=== PATIENT | male | born 1945 | race Caucasian/White ===

== ENCOUNTER 2017-11-23 20:35 | Inpatient (IN) ==
--- NOTE | 2017-11-23 21:06 | PDOC ---
Gen Adult / Medical Screen HPI - General Chief Complaint: General Medical Stated Complaint: ACHES FROM FEET TO HEAD X 2 DAYS Date Seen by Provider: 11/23/17 Time Seen by Provider: 20:51 Source: POSITIVE: Patient Exam Limitations: POSITIVE: No limitations Nurse's Notes Reviewed & Considered: Yes - History of Present Illness Initial Comments: This is a well-developed, well-nourished, 72-year-old male, complaining of hurting all over. Patient has 2 day history of increasing pain from his head to the bottom of his feet. He takes 5 oxycodone today, taking his Lasix approximately 7 PM tonight. He presented here to the emergency room complaining of hurting all over and was found to have an oxygen saturation of 76 % on room air. He states that he received a prescription for home oxygen on Saturday but [facility] has not filled it at this time. He states he gets occasional headaches but presently has no headache. He denies any present chest pain, he does have shortness of breath, denies any nausea vomiting or diarrhea, no fever chills or sweats, no rashes, no hematuria or dysuria, he does have myalgias. Timing: REPORTS: Unknown Duration: >24 hours Similar Symptoms Previously: Yes Recent Care Received: REPORTS: Denies Any Prior Injuries Related to Current Complaint?: No - Patient Home Medications Home Medications: Home Medications Furosemide [Lasix Tab] 40 mg PO BID 05/26/13 Oxycodone HCl/Acetaminophen [Oxycodone-Acetaminophen 10-325] 1 tab PO Q6HR PRN 05/26/13 Spironolactone [Aldactone] 1 tab PO DAILY 05/26/13 Arformoterol Neb Soln [Brovana Neb Soln] 15 mcg IH BID 09/10/13 Desvenlafaxine Succinate [Pristiq ER] 50 mg PO DAILY 09/10/13 Lactulose 10 gm PO QID 09/10/13 Phytonadione (Vit K1) [Vitamin K] 5 gm MC DAILY 09/10/13 Potassium Chloride [Klor-Con Tab] 10 meq PO TID 09/10/13 - Patient Allergies Allergies/Adverse Reactions: Allergies 3 Allergy/AdvReac Type Severity Reaction Status Date / Time cyclobenzaprine HCl Allergy DYSPHORIA Verified 11/23/17 21:02 [From Flexeril] methocarbamol [From Robaxin] Allergy Anaphylaxis Verified 11/23/17 21:02 Past Medical History - heen HEENT History: Cataracts Cardiovascular History: Denies History Respiratory History: COPD, Shortness of Breath, Home Oxygen Use Gastrointestinal History: Diverticulitis Additional Gastrointestinal History: CIRRHOSIS Genitourinary History: Denies History Endocrine History: Denies History Musculoskeletal History: Back Pain Neurological History: Denies History Blood Disorders: Denies History Additional Blood Disorders History: CALL RECEIVED FROM PATIENTS PCP DR SANDERS IN [place]. PT INR HIGH. TO BE TREATED WITH VITAMIN K. DR TITUS OFFICE CALLED AND THEY WERE MADE AWARE OF SITUATION BY DR LOPEZ OFFICE ALSO. DR SALCEDO IN AGREEMENT TO DO PT/INR ON SATURDAY AND IF RESULTS BACK TO NORMAL WILL DO SURGERY BUT IF NOT, SX TO BE CANCELLED. MR CA CALLED TO INFORM HIM OF THIS, AND HE SAID THAT DUE TO INSURANCE AND COST, HE HADNT GOTTEN MEDS YET, AND THAT HIS CASE WAS GOING TO BE APPEALED. I GAVE HIM THE PHONE # TO [facility] AND ASKED HIM TO CALL TOMORROW TO LET THEM KNOW IF HE WAS GOING TO START MEDS OR NOT. [facility]PS WILL THEN CALL DR BLEVINS OFFICE IF HE ISNT GOING TO BE ABLE TO TAKE MED, AT WHICH TIME HIS SURGERY WOULD BE CANCELLED Psychiatric History: Denies History History of Sexually Transmitted Diseases: No Cancer History: Denies History History of MDRO: No History of Other Communicable Diseases: No Alcohol Use: Occasionally In the Past 12 Months, Have Used or Abuse Any Substance: Cocaine, Marijuana, Other (please comment) Previous Surgical History: Yes Type / Date of Surgery: BACK SURGERY/ COLONOSCOPY Anesthesia Reactions: No Malignant Hyperthermia: No Significant Family History: No pertinent family hx ROS - Limitations ROS Limitations: No Limitations Constitution: REPORTS: Denies Symptoms Cardiovascular: REPORTS: Denies Cardiac Symptoms Respiratory: REPORTS: Shortness Of Breath Neurological: REPORTS: Headache Gastrointestinal: REPORTS: Denies GI Symptoms Endocrine: REPORTS: Fatigue Musculoskeletal: REPORTS: Muscle Aches, Pedal Edema Genitourinary: REPORTS: Denies Symptoms Eyes: REPORTS: Denies Symptoms ENT: REPORTS: Denies Symptoms Skin: REPORTS: Denies Skin Symptoms Lympathic: REPORTS: Denies Lympathic Symptoms Immunologic: POSITIVE: Denies Symptoms Psychiatric: POSITIVE: Denies Psych Symptoms Gen Adult/Medical Screen Exam - General Appearance General Appearance: POSITIVE: Alert, Cooperative, No Acute Distress, No Evidence of Trauma - HEENT HEENT: POSITIVE: Head Inspection Nml, Eyes Inspection Nml, Ears Inspection Nml, Nose Inspection Nml, Oral/Dental Inspect. Nml, Pharynx Inspect. Nml, PERRL, EOMI - Pupils Pupil Size: 5 mm: Bilateral - Neck Neck: POSITIVE: Normal Inspection, Thyroid Normal - Respiratory Respiratory: POSITIVE: No Respiratory Distress, Breath Sounds Normal, Chest Non- Tender - Cardiovascular Cardiovascular: POSITIVE: Regular Rate & Rhythm, No Murmur, No Gallop, PMI Normal Peripheral Pulses: Radial (R): 4+ - Abdomen Abdomen: Soft: (All Quadrants), Normal Bowel Sounds: (All Quadrants), No Splenomegaly: (All Quadrants), No Guarding: (All Quadrants), No Rebound: (All Quadrants), No Palpable Pulse: (All Quadrants), No [place] Mass: (All Quadrants), No Distention: (All Quadrants), No Rigidity: (All Quadrants), Tenderness Noted: (All Quadrants), Hepatomegaly: (All Quadrants) - Back Back: POSITIVE: Normal Inspection - Neurological / Psychological Mental Status: POSITIVE: Mood Normal, Affect Normal Orientation: POSITIVE: Oriented x 3 - Skin Skin: POSITIVE: Normal Color, Warm, Dry, No Rash - Extremities Extremity: Non-Tender: (All Extremities), Normal ROM: (All Extremities), Normal Inspection: (All Extremities), Pelvis Stable: (All Extremities) Procedures - Laceration/Wound Repair Did patient have a laceration repair: No Gen Adlt/Medical Scrn Progress - Results Reviewed by me Xrays/CTs/US Reviewed by me: Yes Discussed with Radiologist: Yes Lab Results Reviewed by Me: Yes CBC and BMP: 11/23/17 21:25 11/23/17 21:25 Lab Results:: Laboratory Results 3 11/23/17 11/23/17 11/23/17 21:25 21:25 21:25 WBC 7.82 RBC 5.11 Hgb 13.8 L Hct 41.4 L MCV 81.0 MCH 27.0 MCHC 33.3 RDW Std Deviation 49.0 RDW Coeff of Radha 16.8 H Plt Count 233 MPV 11.5 Immature Gran % (Auto) 0.1 Neut % (Auto) 66.7 Lymph % (Auto) 16.0 [place] % (Auto) 13.8 Eos % (Auto) 2.6 Baso % (Auto) 0.8 Immature Gran # (Auto) 0.01 Neut # (Auto) 5.22 Lymph # (Auto) 1.25 [place] # (Auto) 1.08 H Eos # (Auto) 0.20 Baso # (Auto) 0.06 WBC Morphology Comment Normal morphology Plt Morphology Comment Normal morphology RBC Morph Comment Normal morphology PT 12.0 H INR 1.16 D-Dimer 4.55 H VBG pH VBG pCO2 VBG HCO3 VBG Base Excess Sodium 129 L Potassium 3.5 L Chloride 74 L Carbon Dioxide 41 H Anion Gap 14 BUN 28 H Creatinine 1.2 BUN/Creatinine Ratio 23.33 H Glucose 114 H Calculated Osmolality 274.0 Lactic Acid Calcium 8.9 Magnesium 2.3 Total Bilirubin 2.8 H GGT 30 AST 70 H ALT 28 Alkaline Phosphatase 129 H Ammonia CK-MB (CK-2) Troponin I Handheld C-Reactive Protein 1.6 H NT-Pro-B Natriuret Pep 217 H Total Protein 7.7 Albumin 3.7 Globulin 4.0 Albumin/Globulin Ratio 0.90 L Ur Collection Type Urine Color Urine Clarity Urine pH Ur Specific [place] Urine Protein Urine Glucose (UA) Urine Ketones Urine Occult Blood Urine Nitrate Urine Bilirubin Urine Urobilinogen Ur Leukocyte Esterase Ur Culture Indicated? 3 11/23/17 11/23/17 11/23/17 21:25 21:25 21:25 WBC RBC Hgb Hct MCV MCH MCHC RDW Std Deviation RDW Coeff of Radha Plt Count MPV Immature Gran % (Auto) Neut % (Auto) Lymph % (Auto) [place] % (Auto) Eos % (Auto) Baso % (Auto) Immature Gran # (Auto) Neut # (Auto) Lymph # (Auto) [place] # (Auto) Eos # (Auto) Baso # (Auto) WBC Morphology Comment Plt Morphology Comment RBC Morph Comment PT INR D-Dimer VBG pH VBG pCO2 VBG HCO3 VBG Base Excess Sodium Potassium Chloride Carbon Dioxide Anion Gap BUN Creatinine BUN/Creatinine Ratio Glucose Calculated Osmolality Lactic Acid Calcium Magnesium Total Bilirubin GGT AST ALT Alkaline Phosphatase Ammonia 29 CK-MB (CK-2) 2.55 Troponin I Handheld 0.000 C-Reactive Protein NT-Pro-B Natriuret Pep Total Protein Albumin Globulin Albumin/Globulin Ratio Ur Collection Type Urine Color Urine Clarity Urine pH Ur Specific [place] Urine Protein Urine Glucose (UA) Urine Ketones Urine Occult Blood Urine Nitrate Urine Bilirubin Urine Urobilinogen Ur Leukocyte Esterase Ur Culture Indicated? 3 11/23/17 11/23/17 11/23/17 21:30 22:32 23:45 WBC RBC Hgb Hct MCV MCH MCHC RDW Std Deviation RDW Coeff of Radha Plt Count MPV Immature Gran % (Auto) Neut % (Auto) Lymph % (Auto) [place] % (Auto) Eos % (Auto) Baso % (Auto) Immature Gran # (Auto) Neut # (Auto) Lymph # (Auto) [place] # (Auto) Eos # (Auto) Baso # (Auto) WBC Morphology Comment Plt Morphology Comment RBC Morph Comment PT INR D-Dimer VBG pH 7.58 H VBG pCO2 64 H VBG HCO3 59 H VBG Base Excess > 30 H Sodium Potassium Chloride Carbon Dioxide Anion Gap BUN Creatinine BUN/Creatinine Ratio Glucose Calculated Osmolality Lactic Acid 2.9 H Calcium Magnesium Total Bilirubin GGT AST ALT Alkaline Phosphatase Ammonia CK-MB (CK-2) Troponin I Handheld C-Reactive Protein NT-Pro-B Natriuret Pep Total Protein Albumin Globulin Albumin/Globulin Ratio Ur Collection Type Clean catch urine Urine Color Yellow Urine Clarity Clear Urine pH 7.5 Ur Specific [place] 1.010 Urine Protein Negative Urine Glucose (UA) Negative Urine Ketones Negative Urine Occult Blood Negative Urine Nitrate Negative Urine Bilirubin Negative Urine Urobilinogen 4.0 Ur Leukocyte Esterase Negative Ur Culture Indicated? Culture not set EKG Interpreted/Reviewed By Me:: Yes (sinus arrhythmia with no ST elevation. P waves are present) EKG Interpretation:: POSITIVE: Abnormal EKG - Patient's Progress Pain Medication Addressed: POSITIVE: No Re-Examine Time: 23:06 Status: POSITIVE: Improved MDM / ED Course: Patient was evaluated, an IV started, blood drawn and sent to the lab for studies, CT evaluation of chest and abdomen were obtained. Findings: CBC shows an anemia with hemoglobin of 13.8 and hematocrit of 41.4. CMP reveals sodium of 129, potassium of 3.5, chloride of 74, CO2 of 41, BUN of 28, creatinine 1.2, glucose 114, total bilirubin of 2.8, AST of 70, alkaline phosphatase of 129. Gamma GT is 30. Ammonia is 29. Her x-rays show an INR of 1.16. D-dimer is 4.55. Blood gases show pH is 7.58 with a PCO2 of 64 and a bicarbonate of 59, base excess is greater than 30. Lactic acid is elevated at 2.9. Magnesium is 2.3. Cardiac enzymes show CK-MB of 2.55 and a troponin of 0.000. CRP is 1.6. BNP is 217. Urinalysis is negative. EKG, as interpreted by me, shows a sinus arrhythmia with no ST elevations. CT scan of his chest shows no PE present. CT scan of the abdomen shows no acute intra-abdominal or intrapelvic abnormalities. Assessment: #1 hypoxia. #2 hyponatremia. #3 hypokalemia. #4 cirrhosis of the liver. Plan: IV antibiotics are provided here in the emergency room which includes azithromycin and Rocephin. Patient being admitted by the hospitalist. - Consult Consult (If Yes, Name of Consulting MD & Time Called): Yes (Dr. Dr. Yarbrough) Consulting MD will see pt:: POSITIVE: [facility] [place] Admit Counseled: POSITIVE: Patient, RE: Lab Results, RE: Radiology Results, RE: DX, RE : Need for F/U Patient Care Time - Estimated PCT Patient Care Time (In Minutes): 60 Vital Signs - Recent Vital Signs Vital Signs: Vital Signs (Last 8 hours) Temp Pulse Resp BP Pulse Ox 11/23/17 20:35 97.5 F 105 H 18 97/53 82 - VS Reviewed Vital Signs Reviewed: Yes Discharge Clinical Impression: Hypoxia, Hyponatremia, Hypokalemia Discharge Disposition: Admit to Inpatient Condition: Stable Date Decision to Admit to Inpatient: 11/23/17 Time Decision to Admit to Inpatient: 23:07
[2017-11-23] MEDS ORDERED: Sodium Chloride 0.9% 1,000 ML PRIMARY IV ONE (21:13)
[2017-11-23] MEDS ORDERED: ONDANSETRON 4 MG/2 ML VIAL IVP ONE (21:13)
--- NOTE | 2017-11-23 21:28 | EKG ---
[address] [address] Measurements Intervals [place] Rate: 66 P: [place]: 0 QRS: 26 QRSD: 117 T: 51 QT: 530 QTc: 543 Interpretive Statements SINUS RHYTHM WITH FIRST DEGREE AV BLOCK MODERATE INTRAVENTRICULAR CONDUCTION DELAY PROLONGED QT INTERVAL No previous ECG available for comparison Electronically Signed On 11-25-17 16:51:04 MDT by Dejuan Coppola [id number]
[2017-11-23 21:43] LABS: BASOPHILS # (AUTO) 0.06 10*3/UL; BASOPHILS % (AUTO) 0.8 % (0-1); EOSINOPHILS % (AUTO) 2.6 % (0-8); Hematocrit [HCT] 41.4 % (42.0-52.0); Hemoglobin [HGB] 13.8 g/dL (14.0-18.0); LYMPHOCYTES # (AUTO) 1.25 10*3/uL; MEAN CORPUSCULAR HGB CONC 33.3 g/dL (33-37); MEAN PLATELET VOLUME 11.5 FL (7.4-12.2); MONOCYTES # (AUTO) 1.08 10*3/UL (0.3-0.8); MONOCYTES % (AUTO) 13.8 % (5-15); NEUTROPHILS # (AUTO) 5.22 10*3/UL; NEUTROPHILS % (AUTO) 66.7 % (50-80); RED BLOOD COUNT 5.11 10^6/uL (4.70-6.10)
[2017-11-23 21:49] LABS: BLOOD UREA NITROGEN 28 mg/dL (7-22); BUN/CREATININE RATIO 23.33 (6-20); GAMMA GLUTAMYL TRANSPEPTIDASE 30 IU/L (8-78); SERUM ALBUMIN 3.7 g/dL (3.5-4.8)
[2017-11-23 22:03] LABS: PLATELET MORPHOLOGY COMMENT NORMAL MORPHOLOGY (NORM); RBC MORPHOLOGY COMMENT NORMAL MORPHOLOGY (NORM); WBC MORPHOLOGY COMMENT NORMAL MORPHOLOGY (NORM)
[2017-11-23 22:40] LABS: VENOUS PCO2 64 mmHg (45-55)
[2017-11-23 22:41] LABS: VENOUS BASE EXCESS > 30 MMOL/L (-2-2)
[2017-11-23 22:44] LABS: VENOUS PH 7.58 (7.32-7.42)
[2017-11-23] MEDS ORDERED: cefTRIAXone Inj 2 GM in Sodium Chloride 0.9% 100 ML IV ONE (23:03)
--- NOTE | 2017-11-23 23:11 | DI ---
EXAM: CT Abdomen and Pelvis With Intravenous Contrast CLINICAL HISTORY: Abdominal pain and cirrhosis TECHNIQUE: Axial computed tomography images of the abdomen and pelvis with intravenous contrast. COMPARISON: CT abdomen and pelvis 04/16/2011 FINDINGS: Lung bases: Patchy consolidation within the right lower lung likely representing atelectasis versus an promontory or infectious process. ABDOMEN: Liver: Cirrhotic liver. Gallbladder and bile ducts: Gallstones. Pancreas: Unremarkable. Spleen: Unremarkable. Adrenals: Unremarkable. Kidneys and ureters: Nonobstructing calculi within both kidneys. Cyst within the right kidney. Stomach and bowel: Noninflamed colonic diverticulosis. PELVIS: Appendix: Appendix is unremarkable. Bladder: Unremarkable. Reproductive: Unremarkable as visualized. ABDOMEN and PELVIS: Intraperitoneal space: Unremarkable. Bones/joints: Total left hip arthroplasty. No acute fracture. No dislocation. Soft tissues: Unremarkable. 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 Vascular calcifications. Vascular calcifications. No abdominal aortic aneurysm. Lymph nodes: Unremarkable. IMPRESSION: 1. Patchy consolidation within the right lower lung likely representing atelectasis versus an promontory or infectious process. 2. Cirrhotic liver. 3. Non-inflamed colonic diverticulosis.
--- NOTE | 2017-11-23 23:19 | DI ---
EXAM: CT Angiography Chest With Intravenous Contrast CLINICAL HISTORY: Hypoxia TECHNIQUE: Axial computed tomographic angiography images of the chest with intravenous contrast using pulmonary embolism protocol. MIP reconstructed images were created and reviewed. COMPARISON: No relevant prior studies available. FINDINGS: Pulmonary arteries: No evidence of pulmonary embolus. Aorta: No acute findings. No thoracic aortic aneurysm. Lungs: Centrilobular emphysema. Dependent atelectasis and or scarring. No mass. Pleural space: Unremarkable. No significant effusion. No pneumothorax. Heart: Unremarkable. No cardiomegaly. No significant pericardial effusion. No evidence of RV dysfunction. Bones/joints: No acute fracture. No dislocation. Soft tissues: Unremarkable. Lymph nodes: Unremarkable. No enlarged lymph nodes. Liver: Cirrhotic liver. Gallbladder and bile ducts: Gallstones. IMPRESSION: 1. No evidence of pulmonary embolus. 2. Centrilobular emphysema. 3. Gallstones. No CT evidence of acute cholecystitis. 4. Cirrhotic liver.
[2017-11-24] LABS: BILIRUBIN,URINE NEGATIVE (NEG); CLARITY,URINE CLEAR (CLEAR); COLOR,URINE YELLOW (Y); GLUCOSE, URINE (UA) NEGATIVE (NEG); OCCULT BLOOD,URINE NEGATIVE (NEG); PH,URINE 7.5 (5.0-8.5); PROTEIN,URINE NEGATIVE (NEG)
[2017-11-24 00:04] LABS: URINE SAMPLE TYPE CLEAN CATCH URINE
--- NOTE | 2017-11-24 00:29 | PDOC ---
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 He states that this has really been happening over the last day and a half to 2 days. He notes that he was started on oxygen earlier this last week and he took his prescription and the [employer], but has not had oxygen delivered to the home yet. He notes that his hypoxia is been as low as 70% at home. He denies any cough, fever, or chills. In the emergency room, he was given oxygen, and CT scan of the chest and abdomen and pelvis was done. He did not have any evidence of pulmonary emboli but had what appears to be a right lower lobe early infiltrate or consolidation. I was asked at that time to admit the patient. Given his cirrhosis and laboratory findings he does have what appears to be a class for pneumonia based on pneumonia severity index. He's not had that happen before. He notes to me that is been on antibiotics for some leg swelling and his nurse practitioner and his pain clinic program on an antibiotic that he does not recall the name of. He states he was recently placed on Lasix and spironolactone by his primary care physician for some increased swelling in his lower extremities and that that edema has significantly reduced since he's been on these pills. There were really no other exacerbating factors as the patient was not sure what was making him hurt, but he states that oxygen really does help him feel better tonight. He does admit to using vapors. Past Medical History Medical History: 1. 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 2. Chronic back pain. 3. Tobacco abuse. 4. 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 Surgical History: 1. Hip replacement, left hip Pertinent Family History: States his father committed suicide. Mother of heart complications at age 87. Past Social History: Smokes, vapes, , has 2 children described as healthy. Retired and lives here in [place], [place]. His primary physician is Dr. Lagos in [place], [place]. Tobacco Use: Current Every Day Smoker In the Past 12 Months, Have Used or Abuse Any of the Following Substance: Cocaine, Marijuana, Opiate Pain Medication, Other (please comment) (He denied any IV drug use) Alcohol Use: None Medication / Allergies Home Medications: Home Medications 3 Medication Instructions Recorded Confirmed Type Furosemide [Lasix Tab] 40 mg PO BID 05/26/13 11/23/17 History Oxycodone HCl/Acetaminophen 1 tab PO Q6HR PRN 05/26/13 11/23/17 History [Oxycodone-Acetaminophen 10-325] Spironolactone [Aldactone] 1 tab PO DAILY 05/26/13 11/23/17 History Arformoterol Neb Soln [Brovana Neb 15 mcg IH BID 09/10/13 11/23/17 History Soln] Desvenlafaxine Succinate [Pristiq 50 mg PO DAILY 09/10/13 11/23/17 History ER] Lactulose 10 gm PO QID 09/10/13 11/23/17 History Phytonadione (Vit K1) [Vitamin K] 5 gm MC DAILY 09/10/13 11/23/17 History Potassium Chloride [Klor-Con Tab] 10 meq PO TID 09/10/13 11/23/17 History Allergies/Adverse Reactions: Allergies 3 Allergy/AdvReac Type Severity Reaction Status Date / Time cyclobenzaprine HCl Allergy DYSPHORIA Verified 11/23/17 21:02 [From Flexeril] methocarbamol [From Robaxin] Allergy Anaphylaxis Verified 11/23/17 21:02 Review of Systems - Review of Systems All Systems: Reviewed & No Additional Complaints Except as Stated (I did a 12 point review systems and it was negative other than that discussed below and in the history present illness.) - Constitutional Constitutional: REPORTS: Diffuse Arthralgias, Other (Reports edema that is better on Lasix and spironolactone.) - Cardiovascular Cardiovascular: REPORTS: Negative System Review - Gastrointestinal Gastrointestinal / Abdominal: REPORTS: Constipation (Occasional but not currently) - Musculoskeletal Musculoskeletal: REPORTS: Back Pain (Chronic) Exam - Vitals Vital Signs: Vital Signs Temperature 97.5 F Temperature Source Temporal Artery Scan Pulse Rate [Pulse Oximeter] 105 Respiratory Rate 18 Blood Pressure [Left Arm] 97/53 Pulse Ox 82 Oxygen Delivery Method Room Air Height 5 ft 10 in Weight 220 lb - General General Appearance: No Acute Distress, Cooperative - Head Head Exam: Normal Inspection, Normocephalic, Atraumatic - Eye Eye Exam: POSITIVE: No Scleral Icterus - ENT ENT Exam: POSITIVE: Mucous Membranes Dry - Neck Neck Exam: Normal Inspection, No Tenderness, No Lymphadenopathy, No Thyromegaly , JVP is not Raised - Respiratory Respiratory Exam: POSITIVE: Clear to Auscultation - Bilaterally, Breathing Non Labored, Normal to Percussion and Palpation - Cardiovascular Cardiovascular Exam: POSITIVE: No Murmur, No Clicks, No Gallops, No Rubs, Tachycardia, No JVD - GI/Abdominal GI/Abdominal Exam: POSITIVE: Normal Bowel Sounds, Non Tender, Non Distended, Soft - Rectal Rectal Exam: POSITIVE: Deferred - External Exam: POSITIVE: Deferred Exam: POSITIVE: Deferred - Extremities Extremities Exam: POSITIVE: No Cyanosis Present, Clubbing Present, +1 Edema - Back Back Exam: POSITIVE: No CVA Tenderness - Neurological Neurological Exam: POSITIVE: Alert, Oriented x 3, No Facial Droop, Speech Intact / Clear, Moves All Extremities Equally - Psychiatric Psychiatric Exam: POSITIVE: Normal Affect, Normal Mood - Integumentary Integumentary Exam: POSITIVE: Dry, Intact Additional Integumentary Exam Details: There is no evidence of erythema in the lower extremity. I think the redness that he had was probably related to edema. - Central Line Examination Central Line Present on Admission: No Results - Labs CBC and BMP: 11/23/17 21:25 11/23/17 21:25 Additional Lab Results: Laboratory Results 11/23/17 11/23/17 11/23/17 Range/Units 21:25 21:25 21:25 WBC 7.82 (4.8-10.8) 10^3/uL RBC 5.11 (4.70-6.10) 10^6/uL Hgb 13.8 L (14.0-18.0) g/dL Hct 41.4 L (42.0-52.0) % MCV 81.0 (80-90) FL MCH 27.0 (27-31) PG MCHC 33.3 (33-37) g/dL RDW Std Deviation 49.0 (39-50) fL RDW Coeff of Radha 16.8 H (11.5-14.5) % Plt Count 233 (140-350) 10*3/uL MPV 11.5 (7.4-12.2) FL Immature Gran % (Auto) 0.1 (0-5) % Neut % (Auto) 66.7 (50-80) % Lymph % (Auto) 16.0 (10-50) % [place] % (Auto) 13.8 (5-15) % Eos % (Auto) 2.6 (0-8) % Baso % (Auto) 0.8 (0-1) % Immature Gran # (Auto) 0.01 10*3/UL Neut # (Auto) 5.22 10*3/UL Lymph # (Auto) 1.25 10*3/uL [place] # (Auto) 1.08 H (0.3-0.8) 10*3/UL Eos # (Auto) 0.20 10*3/UL Baso # (Auto) 0.06 10*3/UL WBC Morphology Comment Normal morphology (NORM) Plt Morphology Comment Normal morphology (NORM) RBC Morph Comment Normal morphology (NORM) PT 12.0 H (9.7-11.4) secs INR 1.16 (0.00-5.90) N/A D-Dimer 4.55 H (0.00-0.59) mg/L VBG pH (7.32-7.42) VBG pCO2 (45-55) mmHg VBG HCO3 (22-26) mmol/L VBG Base Excess (-2-2) MMOL/L Sodium 129 L (135-145) meq/L Potassium 3.5 L (3.8-5.2) meq/L Chloride 74 L (98-112) meq/L Carbon Dioxide 41 H (23-33) meq/L Anion Gap 14 (5-20) BUN 28 H (7-22) mg/dL Creatinine 1.2 (0.70-1.50) mg/dL BUN/Creatinine Ratio 23.33 H (6-20) Glucose 114 H (78-110) mg/dL Calculated Osmolality 274.0 (267-292) mOsm/kg Lactic Acid (0.70-2.10) MMOL/L Calcium 8.9 (8.7-10.7) mg/dL Magnesium 2.3 (1.6-2.4) mg/dL Total Bilirubin 2.8 H (0.3-1.2) mg/dL GGT 30 (8-78) IU/L AST 70 H (21-57) IU/L ALT 28 (21-72) IU/L Alkaline Phosphatase 129 H (38-126) IU/L Ammonia (9.0-33.0) UMOL/L CK-MB (CK-2) (0.00-5.00) NG/ML Troponin I Handheld (< 0.040) ng/mL C-Reactive Protein 1.6 H (0.0-0.9) mg/dL NT-Pro-B Natriuret Pep 217 H (0-125) PG/ML Total Protein 7.7 (6.1-8.0) g/dL Albumin 3.7 (3.5-4.8) g/dL Globulin 4.0 (2.50-4.10) g/dL Albumin/Globulin Ratio 0.90 L (1.3-2.0) mg/g Ur Collection Type Urine Color (Y) Urine Clarity (CLEAR) Urine pH (5.0-8.5) Ur Specific [place] (1.005-1.030) Urine Protein (NEG) mg/dl Urine Glucose (UA) (NEG) mg/dL Urine Ketones (NEG) Urine Occult Blood (NEG) Urine Nitrate (NEG) Urine Bilirubin (NEG) Urine Urobilinogen (0.2) EU/dL Ur Leukocyte Esterase (NEG) Ur Culture Indicated? 11/23/17 11/23/17 11/23/17 Range/Units 21:25 21:25 21:25 WBC (4.8-10.8) 10^3/uL RBC (4.70-6.10) 10^6/uL Hgb (14.0-18.0) g/dL Hct (42.0-52.0) % MCV (80-90) FL MCH (27-31) PG MCHC (33-37) g/dL RDW Std Deviation (39-50) fL RDW Coeff of Radha (11.5-14.5) % Plt Count (140-350) 10*3/uL MPV (7.4-12.2) FL Immature Gran % (Auto) (0-5) % Neut % (Auto) (50-80) % Lymph % (Auto) (10-50) % [place] % (Auto) (5-15) % Eos % (Auto) (0-8) % Baso % (Auto) (0-1) % Immature Gran # (Auto) 10*3/UL Neut # (Auto) 10*3/UL Lymph # (Auto) 10*3/uL [place] # (Auto) (0.3-0.8) 10*3/UL Eos # (Auto) 10*3/UL Baso # (Auto) 10*3/UL WBC Morphology Comment (NORM) Plt Morphology Comment (NORM) RBC Morph Comment (NORM) PT (9.7-11.4) secs INR (0.00-5.90) N/A D-Dimer (0.00-0.59) mg/L VBG pH (7.32-7.42) VBG pCO2 (45-55) mmHg VBG HCO3 (22-26) mmol/L VBG Base Excess (-2-2) MMOL/L Sodium (135-145) meq/L Potassium (3.8-5.2) meq/L Chloride (98-112) meq/L Carbon Dioxide (23-33) meq/L Anion Gap (5-20) BUN (7-22) mg/dL Creatinine (0.70-1.50) mg/dL BUN/Creatinine Ratio (6-20) Glucose (78-110) mg/dL Calculated Osmolality (267-292) mOsm/kg Lactic Acid (0.70-2.10) MMOL/L Calcium (8.7-10.7) mg/dL Magnesium (1.6-2.4) mg/dL Total Bilirubin (0.3-1.2) mg/dL GGT (8-78) IU/L AST (21-57) IU/L ALT (21-72) IU/L Alkaline Phosphatase (38-126) IU/L Ammonia 29 (9.0-33.0) UMOL/L CK-MB (CK-2) 2.55 (0.00-5.00) NG/ML Troponin I Handheld 0.000 (< 0.040) ng/mL C-Reactive Protein (0.0-0.9) mg/dL NT-Pro-B Natriuret Pep (0-125) PG/ML Total Protein (6.1-8.0) g/dL Albumin (3.5-4.8) g/dL Globulin (2.50-4.10) g/dL Albumin/Globulin Ratio (1.3-2.0) mg/g Ur Collection Type Urine Color (Y) Urine Clarity (CLEAR) Urine pH (5.0-8.5) Ur Specific [place] (1.005-1.030) Urine Protein (NEG) mg/dl Urine Glucose (UA) (NEG) mg/dL Urine Ketones (NEG) Urine Occult Blood (NEG) Urine Nitrate (NEG) Urine Bilirubin (NEG) Urine Urobilinogen (0.2) EU/dL Ur Leukocyte Esterase (NEG) Ur Culture Indicated? 11/23/17 11/23/17 11/23/17 Range/Units 21:30 22:32 23:45 WBC (4.8-10.8) 10^3/uL RBC (4.70-6.10) 10^6/uL Hgb (14.0-18.0) g/dL Hct (42.0-52.0) % MCV (80-90) FL MCH (27-31) PG MCHC (33-37) g/dL RDW Std Deviation (39-50) fL RDW Coeff of Radha (11.5-14.5) % Plt Count (140-350) 10*3/uL MPV (7.4-12.2) FL Immature Gran % (Auto) (0-5) % Neut % (Auto) (50-80) % Lymph % (Auto) (10-50) % [place] % (Auto) (5-15) % Eos % (Auto) (0-8) % Baso % (Auto) (0-1) % Immature Gran # (Auto) 10*3/UL Neut # (Auto) 10*3/UL Lymph # (Auto) 10*3/uL [place] # (Auto) (0.3-0.8) 10*3/UL Eos # (Auto) 10*3/UL Baso # (Auto) 10*3/UL WBC Morphology Comment (NORM) Plt Morphology Comment (NORM) RBC Morph Comment (NORM) PT (9.7-11.4) secs INR (0.00-5.90) N/A D-Dimer (0.00-0.59) mg/L VBG pH 7.58 H (7.32-7.42) VBG pCO2 64 H (45-55) mmHg VBG HCO3 59 H (22-26) mmol/L VBG Base Excess > 30 H (-2-2) MMOL/L Sodium (135-145) meq/L Potassium (3.8-5.2) meq/L Chloride (98-112) meq/L Carbon Dioxide (23-33) meq/L Anion Gap (5-20) BUN (7-22) mg/dL Creatinine (0.70-1.50) mg/dL BUN/Creatinine Ratio (6-20) Glucose (78-110) mg/dL Calculated Osmolality (267-292) mOsm/kg Lactic Acid 2.9 H (0.70-2.10) MMOL/L Calcium (8.7-10.7) mg/dL Magnesium (1.6-2.4) mg/dL Total Bilirubin (0.3-1.2) mg/dL GGT (8-78) IU/L AST (21-57) IU/L ALT (21-72) IU/L Alkaline Phosphatase (38-126) IU/L Ammonia (9.0-33.0) UMOL/L CK-MB (CK-2) (0.00-5.00) NG/ML Troponin I Handheld (< 0.040) ng/mL C-Reactive Protein (0.0-0.9) mg/dL NT-Pro-B Natriuret Pep (0-125) PG/ML Total Protein (6.1-8.0) g/dL Albumin (3.5-4.8) g/dL Globulin (2.50-4.10) g/dL Albumin/Globulin Ratio (1.3-2.0) mg/g Ur Collection Type Clean catch urine Urine Color Yellow (Y) Urine Clarity Clear (CLEAR) Urine pH 7.5 (5.0-8.5) Ur Specific [place] 1.010 (1.005-1.030) Urine Protein Negative (NEG) mg/dl Urine Glucose (UA) Negative (NEG) mg/dL Urine Ketones Negative (NEG) Urine Occult Blood Negative (NEG) Urine Nitrate Negative (NEG) Urine Bilirubin Negative (NEG) Urine Urobilinogen 4.0 (0.2) EU/dL Ur Leukocyte Esterase Negative (NEG) Ur Culture Indicated? Culture not set - EKG Data -: EKG Interpreted by Ms Rate: Normal EKG Shows Normal: Sinus Rhythm (Sinus arrhythmia) - EKG Data When Compared to Previous EKG(s) There Are: Previous EKG Unavailable - Imaging Status: Image Reviewed by Me (I looked at the CT scan of the chest, I also looked at the CT scan of the abdomen and pelvis. The patient has a small liver. He has what appears to be a right renal cyst. He has what appears to be developing infiltrate in the right lower lobe.) Assessment and Plan - Patient Problems (1) Pneumonia Current Visit: Yes Status: Acute Code(s): J18.9 - Pneumonia, unspecified organism Qualifiers: Pneumonia type: due to unspecified organism Laterality: right Lung location: lower lobe of lung Qualified Code(s): J18.1 - Lobar pneumonia, unspecified organism (2) Cirrhosis of liver Current Visit: Yes Status: Acute Code(s): K74.60 - Unspecified cirrhosis of liver Qualifiers: Hepatic cirrhosis type: alcoholic cirrhosis Ascites presence: without ascites Qualified Code(s): K70.30 - Alcoholic cirrhosis of liver without ascites (3) Electrolyte abnormality Current Visit: Yes Status: Acute Code(s): E87.8 - Other disorders of electrolyte and fluid balance, not elsewhere classified (4) Tobacco abuse Current Visit: Yes Status: Acute Code(s): Z72.0 - Tobacco use (5) COPD (chronic obstructive pulmonary disease) Current Visit: Yes Status: Suspected Code(s): J44.9 - Chronic obstructive pulmonary disease, unspecified Qualifiers: COPD type: emphysema Emphysema type: centrilobular Qualified Code(s): J43.2 - Centrilobular emphysema - Assessment / Plan Additional Assessment/Plan Details: Admit patient. This will be an inpatient stay as I expect at least 2 consecutive midnights Antibiotics will be given IV rocephin and zithromax, will give IV and switched to by mouth antibiotics when possible. I will write for some breathing therapies including nebulized therapies if necessary. Will also continue the patient's home inhalers. Oxygen as necessary to keep saturations greater than 91%. Respiratory therapy to evaluate. Vitamin C by mouth. We'll check a urinary antigen for strep pneumoniae. I will order Pneumovax PSI score is elevated . Class IV pneumonia smoking status positive, so smoking cessation ordered along with nicotine replacement Repeat labs in a.m. CODE STATUS discussed, full code. Blood cultures are pending. Telemetry monitoring for now. course of antibiotics will be 5 to 7 days, and will consider switch to oral antibiotics within 48 hours if clinical picuture stabilizes. Replace potassium Check lactic acid in a.m. Plan above discussed with patient and patient agreed
--- NOTE | 2017-11-24 00:36 | HOSP.PSI ---
Pneumonia Severity Index - PSI Age: 72 Sex: Male Detention Resident: No History of Neoplastic Disease: No History of Liver Disease: Yes History of Congestive Heart Failure: No History of Cerebrovascular Disease: No History of Renal Disease: No Altered Mental Status: No Respiratory Rate Greater Than 30: No Systolic Blood Pressure Less Than 90 mmHg: No Temperature Less Than 95F or Greater Than 103.8F: No Pulse Greater Than 124 bpm: No pH Less Than 7.35: No BUN Greater Than 29: No Sodium Less Than 130: Yes Glucose Greater Than 249: No Hematocrit Less Than 30%: No Partial Pressure of Oxygen Less Than 60 mmHg: No Pleural Effusion on Xray: No (class IV pneumonia, placed on rocephin and zithromax. admit) Total PSI Score: 112 PSI Risk: Moderate Risk (91-131) = Consider Inpatient Admission
[2017-11-24] MEDS ORDERED: cefTRIAXone Inj 2 GM in Sodium Chloride 0.9% 100 ML IV SCH (00:45)
[2017-11-24] MEDS ORDERED: LIDOCAINE W/ SODIUM BICARB 0.5 ML SYR SUBD PRN (00:45)
[2017-11-24] MEDS ORDERED: oxyCODONE/APAP 10/325 Tab 1 EACH TAB PO PRN (00:45)
[2017-11-24] MEDS ORDERED: Sodium Chloride 0.9% 0 ML IV ONE (01:00)
[2017-11-24] MEDS: ONDANSETRON 4 MG/2 ML VIAL IVP PRN (02:00)
[2017-11-24 05:41] LABS: BASOPHILS # (AUTO) 0.04 10*3/UL; BASOPHILS % (AUTO) 0.5 % (0-1); EOSINOPHILS # (AUTO) 0.29 10*3/UL; EOSINOPHILS % (AUTO) 3.6 % (0-8); Hematocrit [HCT] 38.7 % (42.0-52.0); Hemoglobin [HGB] 12.6 g/dL (14.0-18.0); LYMPHOCYTES # (AUTO) 1.75 10*3/uL; MEAN CORPUSCULAR HEMOGLOBIN 26.5 PG (27-31); MEAN CORPUSCULAR HGB CONC 32.6 g/dL (33-37); MEAN CORPUSCULAR VOLUME 81.5 FL (80-90); MEAN PLATELET VOLUME 11.7 FL (7.4-12.2); MONOCYTES # (AUTO) 1.08 10*3/UL (0.3-0.8); MONOCYTES % (AUTO) 13.4 % (5-15); NEUTROPHILS % (AUTO) 60.6 % (50-80); RED BLOOD COUNT 4.75 10^6/uL (4.70-6.10)
[2017-11-24] MEDS: ALBUTEROL SULFATE 2.5 MG/3 ML NEB PRN ×4 (06:36→19:07)
[2017-11-24] MEDS: ARFORMOTEROL NEB SOLN 15 MCG/2 ML NEB SCH ×2 (06:37→19:12)
[2017-11-24 07:07] LABS: PLATELET MORPHOLOGY COMMENT NORMAL MORPHOLOGY (NORM); RBC MORPHOLOGY COMMENT NORMAL MORPHOLOGY (NORM); WBC MORPHOLOGY COMMENT NORMAL MORPHOLOGY (NORM)
[2017-11-24] MEDS: AZITHROMYCIN 250 MG TABLET PO SCH (08:24)
[2017-11-24] MEDS: LACTULOSE 20 GM PACKET PO SCH ×3 (08:24→20:17)
[2017-11-24] MEDS: Spironolactone Tab 50 MG TAB PO SCH (08:24)
[2017-11-24] MEDS: GUAIFENESIN 600 MG TABLET PO SCH ×2 (08:25→20:17)
[2017-11-24] MEDS: ENOXAPARIN SODIUM 40 MG/0.4 ML SYRINGE SUBCUT SCH (08:26)
[2017-11-24] MEDS ORDERED: PHYTONADIONE MC SCH (09:00)
[2017-11-24] MEDS ORDERED: Potassium Chloride Tab 10 MEQ TAB PO SCH (09:00)
[2017-11-24] MEDS ORDERED: FUROSEMIDE 40 MG TABLET PO SCH (09:00)
[2017-11-24] MEDS: DESVENLAFAXINE SUCCINATE 50 MG PO SCH (09:29)
[2017-11-24] MEDS: ASCORBIC ACID Chewable 500 MG TABLET PO SCH (11:27)
[2017-11-24] MEDS: oxyCODONE IR Tab 5 MG TAB PO PRN ×2 (13:10→20:18)
[2017-11-24] MEDS ORDERED: Pneumococcal Vacc 13 Syringe 0.5 ML DISP.SYRIN IM ONE (13:59)
--- NOTE | 2017-11-24 13:59 | PDOC(PROG) ---
Date of Service: 11/24/17 Time of Service: 13:55 Interval History: Spoke with patient and his son. Patient feeling significantly better. No cough , shortness breath is better, leg pain is resolved. He states that the fluid really came off fast with his diuretic combination so we'll lower the doses of spironolactone and Lasix as he was at a 100:40 ratio. No chest pain. Concerned about using oxygen all day but we do not know yet if she'll have to use it daily or just at night in the long-term as he gets better from pneumonia. Objective : Data - Labs CBC and BMP: 11/24/17 05:30 11/23/17 21:25 Objective : Exam - General General Appearance: No Acute Distress, Cooperative Additional General Exam Details: Vital Signs - Last Taken Temperature 97.7 F 11/24/17 13:00 Pulse Rate 66 11/24/17 13:00 Respiratory Rate 16 11/24/17 13:00 Blood Pressure 109/49 11/24/17 13:00 Pulse Ox 91 11/24/17 13:00 - Eye Eye Exam: No Scleral Icterus - ENT ENT Exam: Mucous Membranes Moist - Respiratory Respiratory Exam: Clear to Auscultation - Bilaterally, Breathing Non Labored - Cardiovascular Cardiovascular Exam: RRR, No Murmur, No Clicks, No Gallops, No Rubs, No JVD - GI/Abdominal GI/Abdominal Exam: Normal Bowel Sounds, Non Tender, Non Distended, Soft - Extremities Extremities Exam: No Cyanosis Present, Clubbing Present, +1 Edema - Neurological Neurological Exam: Alert, Oriented x 3, Normal Gait, No Facial Droop, Speech Intact / Clear, Moves All Extremities Equally Assessment and Plan - Patient Problems (1) Pneumonia Current Visit: Yes Status: Acute Code(s): J18.9 - Pneumonia, unspecified organism Qualifiers: Pneumonia type: due to unspecified organism Laterality: right Lung location: lower lobe of lung Qualified Code(s): J18.1 - Lobar pneumonia, unspecified organism (2) Cirrhosis of liver Current Visit: Yes Status: Acute Code(s): K74.60 - Unspecified cirrhosis of liver Qualifiers: Hepatic cirrhosis type: alcoholic cirrhosis Ascites presence: without ascites Qualified Code(s): K70.30 - Alcoholic cirrhosis of liver without ascites (3) Electrolyte abnormality Current Visit: Yes Status: Acute Code(s): E87.8 - Other disorders of electrolyte and fluid balance, not elsewhere classified (4) Tobacco abuse Current Visit: Yes Status: Acute Code(s): Z72.0 - Tobacco use (5) COPD (chronic obstructive pulmonary disease) Current Visit: Yes Status: Suspected Code(s): J44.9 - Chronic obstructive pulmonary disease, unspecified Qualifiers: COPD type: emphysema Emphysema type: centrilobular Qualified Code(s): J43.2 - Centrilobular emphysema - Assessment / Plan Additional Assessment/Plan Details: Reduce spironolactone and Lasix to 50 mg and 20 mg daily. Change potassium to 20 mg by mouth daily. Check electrolytes in morning along with CBC with differential. Continue Rocephin and Zithromax. Oxygen at discharge with Mark. 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 In particular, the patient will need a new dose of Lasix and a new dose of potassium in terms of prescriptions I think we could lower the lactulose to twice per day. Pneumovax vaccine today Addendum entered and electronically signed by LILI LOUIS 11/24/17 13:59:
[2017-11-24] MEDS: cefTRIAXone Inj 2 GM in Sodium Chloride 0.9% 100 ML IV SCH (23:35)
[2017-11-25] MEDS: oxyCODONE IR Tab 5 MG TAB PO PRN ×4 (03:18→20:51)
[2017-11-25 05:41] LABS: BASOPHILS # (AUTO) 0.04 10*3/UL; BASOPHILS % (AUTO) 0.5 % (0-1); EOSINOPHILS # (AUTO) 0.34 10*3/UL; EOSINOPHILS % (AUTO) 4.2 % (0-8); Hematocrit [HCT] 38.2 % (42.0-52.0); Hemoglobin [HGB] 12.5 g/dL (14.0-18.0); LYMPHOCYTES # (AUTO) 1.41 10*3/uL; MEAN CORPUSCULAR HEMOGLOBIN 26.8 PG (27-31); MEAN CORPUSCULAR HGB CONC 32.7 g/dL (33-37); MEAN PLATELET VOLUME 11.9 FL (7.4-12.2); MONOCYTES # (AUTO) 1.17 10*3/UL (0.3-0.8); MONOCYTES % (AUTO) 14.4 % (5-15); NEUTROPHILS # (AUTO) 5.13 10*3/UL; NEUTROPHILS % (AUTO) 63.4 % (50-80); RED BLOOD COUNT 4.66 10^6/uL (4.70-6.10)
[2017-11-25 06:03] LABS: BLOOD UREA NITROGEN 25 mg/dL (7-22); BUN/CREATININE RATIO 20.83 (6-20); SERUM ALBUMIN 3.1 g/dL (3.5-4.8)
[2017-11-25 06:24] LABS: PLATELET MORPHOLOGY COMMENT NORMAL MORPHOLOGY (NORM); RBC MORPHOLOGY COMMENT NORMAL MORPHOLOGY (NORM); WBC MORPHOLOGY COMMENT NORMAL MORPHOLOGY (NORM)
[2017-11-25] MEDS: ARFORMOTEROL NEB SOLN 15 MCG/2 ML NEB SCH ×2 (06:38→19:17)
[2017-11-25] MEDS: ALBUTEROL SULFATE 2.5 MG/3 ML NEB PRN ×2 (06:42→19:15)
[2017-11-25] MEDS: FUROSEMIDE 20 MG TABLET PO SCH (07:45)
[2017-11-25] MEDS ORDERED: POTASSIUM CHLORIDE 20 MEQ TAB PO SCH (09:00)
[2017-11-25] MEDS: DESVENLAFAXINE SUCCINATE 50 MG PO SCH (09:17)
[2017-11-25] MEDS: LACTULOSE 20 GM PACKET PO SCH ×2 (09:17→20:51)
[2017-11-25] MEDS: AZITHROMYCIN 250 MG TABLET PO SCH (09:17)
[2017-11-25] MEDS: ENOXAPARIN SODIUM 40 MG/0.4 ML SYRINGE SUBCUT SCH (09:17)
[2017-11-25] MEDS: GUAIFENESIN 600 MG TABLET PO SCH ×2 (09:17→20:51)
[2017-11-25] MEDS: Spironolactone Tab 50 MG TAB PO SCH (09:18)
[2017-11-25] MEDS: ASCORBIC ACID Chewable 500 MG TABLET PO SCH (09:18)
--- NOTE | 2017-11-25 09:41 | PDOC(PROG) ---
Date of Service: 11/25/17 Time of Service: 09:40 Interval History: Subjective Patient was brought to the hospital because of pain in his legs he said. He said last week he had worsening swelling in his legs went to his physician in [place] Dr. Lagos who apparently added Zaroxolyn in addition to the Lasix and spironolactone he's on. He quickly apparently lost much weight and the swelling much improved. However he started to have pain in his legs and because of that he came into the hospital. He denied shortness of breath but he did report that his oxygen saturation was low when he saw his primary and he was supposed to get oxygen but he didn't get it yet. There is no cough. He feels better compared to when he came in. Objective : Data - Labs CBC and BMP: 11/25/17 05:25 11/25/17 05:25 Objective : Exam - General General Appearance: No Acute Distress, Cooperative - Head Head Exam: Normal Inspection - Eye Eye Exam: Normal Appearance - ENT ENT Exam: Normal Exam - Neck Neck Exam: Normal Inspection - Respiratory Respiratory Exam: Clear to Auscultation - Bilaterally - Cardiovascular Cardiovascular Exam: RRR - GI/Abdominal GI/Abdominal Exam: Normal Bowel Sounds, Non Tender, Non Distended, Soft, No Organomegaly - Rectal Rectal Exam: Deferred - External Exam: Deferred - Extremities Extremities Exam: Normal Inspection - Back Back Exam: Normal Inspection - Neurological Neurological Exam: Alert, Oriented x 3, CN II-XII Intact, No Facial Droop, Speech Intact / Clear, Moves All Extremities Equally - Psychiatric Psychiatric Exam: Normal Affect - Integumentary Integumentary Exam: Normal Color Assessment and Plan - Patient Problems (1) Pneumonia Current Visit: Yes Status: Acute Comment: Continue current antibiotics. His symptoms very atypical. However he did have hypoxia when he came in. I will continue with the same plan. Maybe home tomorrow on oral antibiotics. Code(s): J18.9 - Pneumonia, unspecified organism Qualifiers: Pneumonia type: due to unspecified organism Laterality: right Lung location: lower lobe of lung Qualified Code(s): J18.1 - Lobar pneumonia, unspecified organism (2) Cirrhosis of liver Current Visit: Yes Status: Acute Comment: He is on Lasix and spironolactone and Dr. Yarbrough cut back on the dosage will keep the same current dosage now. Code(s): K74.60 - Unspecified cirrhosis of liver Qualifiers: Hepatic cirrhosis type: alcoholic cirrhosis Ascites presence: without ascites Qualified Code(s): K70.30 - Alcoholic cirrhosis of liver without ascites (3) Electrolyte abnormality Current Visit: Yes Status: Acute Comment: His potassium is low will give him some potassium repeat it tonight and tomorrow. Code(s): E87.8 - Other disorders of electrolyte and fluid balance, not elsewhere classified (4) COPD (chronic obstructive pulmonary disease) Current Visit: Yes Status: Suspected Comment: There is probably COPD in addition to the possible pneumonia he needs oxygen will arrange once he goes home. Code(s): J44.9 - Chronic obstructive pulmonary disease, unspecified Qualifiers: COPD type: emphysema Emphysema type: centrilobular Qualified Code(s): J43.2 - Centrilobular emphysema
[2017-11-25] MEDS: POTASSIUM CHLORIDE 20 MEQ TAB PO SCH ×2 (17:08→20:51)
[2017-11-25 22:37] LABS: BLOOD UREA NITROGEN 24 mg/dL (7-22)
[2017-11-25] MEDS: ONDANSETRON 4 MG/2 ML VIAL IVP PRN (23:06)
[2017-11-25] MEDS: cefTRIAXone Inj 2 GM in Sodium Chloride 0.9% 100 ML IV SCH (23:45)
[2017-11-26 05:39] LABS: BLOOD UREA NITROGEN 23 mg/dL (7-22)
[2017-11-26] MEDS: FUROSEMIDE 20 MG TABLET PO SCH (06:29)
[2017-11-26 06:34] VITALS: BP 125/55; TEMP 97.2
[2017-11-26] MEDS: ARFORMOTEROL NEB SOLN 15 MCG/2 ML NEB SCH (06:45)
[2017-11-26] MEDS: ALBUTEROL SULFATE 2.5 MG/3 ML NEB PRN (06:46)
[2017-11-26 06:47] VITALS: RESP 18; O2SAT 92
[2017-11-26] MEDS: LACTULOSE 20 GM PACKET PO SCH (08:38)
[2017-11-26] MEDS: AZITHROMYCIN 250 MG TABLET PO SCH (08:38)
[2017-11-26] MEDS: ENOXAPARIN SODIUM 40 MG/0.4 ML SYRINGE SUBCUT SCH (08:38)
[2017-11-26] MEDS: ASCORBIC ACID Chewable 500 MG TABLET PO SCH (08:38)
--- NOTE | 2017-11-26 08:38 | DCSUMMARY ---
Hospitalization Summary Admit Date: 11/24/2017 Discharge Date: 11/26/17 Hospital Course: Discharge diagnosis 1. Patchy consolidation right lower lobe, atelectasis versus pneumonia 2. History of cirrhosis 3. COPD/emphysema 4. Gallstones 5. Chronic back pain 6. Hypokalemia Hospital course This is a 72 years old male with medical history significant for history of alcohol abuse in the past and history of cirrhosis of the liver and recent diagnosis of hypoxia who came into the hospital because he was complaining from hurting all over. Apparently a few days before he came into the hospital he had significant swelling in his legs and was seen by his primary who added Zaroxolyn to his medication which include Lasix and spironolactone. Was also found to be hypoxic and was given a prescription for oxygen however this was not setup. Because of the discomfort that he had in his legs he came into the ER he was hypoxic so CT of the chest and abdomen was done there was no PE but it did show right lower lobe early infiltrate or consolidation. Blood culture was taken and he was started on IV antibiotic and he was admitted to the hospital. He was admitted by Dr. Yarbrough please see his note. The dosage of his diuretics were adjusted. I saw him next day he was making improvement. We continued with same treatment and on day of discharge he was feeling better so we thought that he could be discharged home. He did have some hypokalemia however it improved from the day before. I thought that this can be replaced as an outpatient. I did keep him on a lower dosage of diuretics compared to what he had before we did stop the Zaroxolyn. Did instruct him to follow-up with his primary. In addition he need to check his weight and if started to gain weight then he needs to increase the dosage of the Lasix and spironlactone to the previous dosage. He was discharged on 20 of Lasix and 50 mg of spironolactone a day. The patient did tell me that his primary did order a chemistry and I instructed told him that he need do it this week. He was discharged on oxygen. Discharge instruction Diet regular Activity as started Medications Current Medication(s) 3 Medication Instructions Recorded Confirmed Type Oxycodone HCl/Acetaminophen 1 tab PO Q6HR PRN 05/26/13 11/23/17 History [Oxycodone-Acetaminophen 10-325] Spironolactone [Aldactone] 1 tab PO DAILY 05/26/13 11/23/17 History Arformoterol Neb Soln [Brovana Neb 15 mcg IH BID 09/10/13 11/23/17 History Soln] Desvenlafaxine Succinate [Pristiq] 50 mg PO DAILY 09/10/13 11/23/17 History Lactulose 10 gm PO QID 09/10/13 11/23/17 History Phytonadione (Vit K1) [Vitamin K] 5 gm MC DAILY 09/10/13 11/23/17 History Potassium Chloride [Klor-Con] 10 meq PO TID 09/10/13 11/23/17 History Azithromycin [Zithromax] 250 mg PO DAILY #3 tab 11/26/17 Rx Cefdinir [Omnicef] 300 mg PO BID #6 cap 11/26/17 Rx Furosemide [Lasix] 20 mg PO DAILY@0700 tab 11/26/17 Rx Follow-up with his PCP in 1-2 weeks, need repeat chemistry this week Condition at discharge was stable for discharge Exam - Vitals Vital Signs: Vital Signs Temperature 97.2 F Temperature Source Temporal Artery Scan Pulse Rate [Apical] 80 Pulse Rate [Pulse Oximeter] 76 Pulse Rate 70 Respiratory Rate 18 Blood Pressure [Left Arm] 125/55 Blood Pressure 101/58 Pulse Ox 92 Oxygen Flow Rate 3 Oxygen Delivery Method Nasal Cannula Height 5 ft 10 in Weight 216 lb 1 oz - General General Appearance: No Acute Distress, Cooperative - Head Head Exam: Normal Inspection - ENT ENT Exam: POSITIVE: Normal Exam - Neck Neck Exam: Normal Inspection - Respiratory Respiratory Exam: POSITIVE: Clear to Auscultation - Bilaterally - Cardiovascular Cardiovascular Exam: POSITIVE: RRR - GI/Abdominal GI/Abdominal Exam: POSITIVE: Normal Bowel Sounds, Non Tender, Non Distended, Soft, No Organomegaly - Rectal Rectal Exam: POSITIVE: Deferred - External Exam: POSITIVE: Deferred Exam: POSITIVE: Deferred - Extremities Extremities Exam: POSITIVE: Normal Inspection - Back Back Exam: POSITIVE: Normal Inspection - Neurological Neurological Exam: POSITIVE: Alert, Oriented x 3, CN II-XII Intact, No Facial Droop, Speech Intact / Clear, Moves All Extremities Equally - Psychiatric Psychiatric Exam: POSITIVE: Normal Affect Patient Problems - Patient Problem List (1) Pneumonia Status: Acute Code(s): J18.9 - Pneumonia, unspecified organism Qualifiers: Pneumonia type: due to unspecified organism Laterality: right Lung location: lower lobe of lung Qualified Code(s): J18.1 - Lobar pneumonia, unspecified organism Category: Medical (2) Cirrhosis of liver Status: Acute Code(s): K74.60 - Unspecified cirrhosis of liver Qualifiers: Hepatic cirrhosis type: alcoholic cirrhosis Ascites presence: without ascites Qualified Code(s): K70.30 - Alcoholic cirrhosis of liver without ascites Category: Medical (3) Electrolyte abnormality Status: Acute Code(s): E87.8 - Other disorders of electrolyte and fluid balance, not elsewhere classified Category: Medical (4) COPD (chronic obstructive pulmonary disease) Status: Suspected Code(s): J44.9 - Chronic obstructive pulmonary disease, unspecified Qualifiers: COPD type: emphysema Emphysema type: centrilobular Qualified Code(s): J43.2 - Centrilobular emphysema Category: Medical
[2017-11-26] MEDS: Spironolactone Tab 50 MG TAB PO SCH (08:39)
[2017-11-26] MEDS: GUAIFENESIN 600 MG TABLET PO SCH (08:39)
[2017-11-26] MEDS: POTASSIUM CHLORIDE 20 MEQ TAB PO SCH (08:39)
[2017-11-26] MEDS: DESVENLAFAXINE SUCCINATE 50 MG PO SCH (08:44)
== END 2017-11-26 11:08 | disposition home or self-care (01) | DRG 195 ==
LOC: ER 20:35 → MED/SURG 11-24 00:44
PROVIDERS: ADMIT Family Medicine; ATTEND Family Medicine

== ENCOUNTER 2018-01-05 09:08 | Inpatient (IN) ==
[2018-01-05] MEDS ORDERED: Sodium Chloride 0.9% 1,000 ML PRIMARY IV ONE ×2 (09:30→10:55)
--- NOTE | 2018-01-05 09:56 | EKG ---
[address] [place] [address] Measurements Intervals [place] Rate: 62 P: 42 RI: 220 QRS: 42 QRSD: 105 T: 48 QT: 476 QTc: 481 Interpretive Statements SINUS RHYTHM WITH FIRST DEGREE AV BLOCK WITH OCCASIONAL SUPRAVENTRICULAR PREMATURE COMPLEXES PROLONGED QT INTERVAL Compared to ECG 12/07/2017 19:08:08 First degree AV block now present Prolonged QT interval now present ST (T wave) deviation no longer present Possible ischemia no longer present Electronically Signed On 01-05-18 10:48:19 MDT by Dejuan Coppola [email or web address]
[2018-01-05 10:01] LABS: BASOPHILS # (AUTO) 0.03 10*3/UL; BASOPHILS % (AUTO) 0.3 % (0-1); EOSINOPHILS # (AUTO) 0.04 10*3/UL; EOSINOPHILS % (AUTO) 0.3 % (0-8); Hematocrit [HCT] 42.4 % (42.0-52.0); Hemoglobin [HGB] 15.1 g/dL (14.0-18.0); LYMPHOCYTES # (AUTO) 1.29 10*3/uL; MEAN CORPUSCULAR HEMOGLOBIN 27.9 PG (27-31); MEAN CORPUSCULAR HGB CONC 35.6 g/dL (33-37); MEAN CORPUSCULAR VOLUME 78.4 FL (80-90); MONOCYTES # (AUTO) 0.94 10*3/UL (0.3-0.8); MONOCYTES % (AUTO) 8.2 % (5-15); NEUTROPHILS # (AUTO) 9.13 10*3/UL; NEUTROPHILS % (AUTO) 79.7 % (50-80); RED BLOOD COUNT 5.41 10^6/uL (4.70-6.10)
[2018-01-05 10:07] LABS: BLOOD UREA NITROGEN 36 mg/dL (7-22); SERUM ALBUMIN 4.2 g/dL (3.5-4.8)
[2018-01-05 10:08] LABS: VENOUS PH 7.54 (7.32-7.42)
[2018-01-05 10:22] LABS: PLATELET MORPHOLOGY COMMENT NORMAL MORPHOLOGY (NORM); RBC MORPHOLOGY COMMENT SEE COMMENTS (NORM); WBC MORPHOLOGY COMMENT NORMAL MORPHOLOGY (NORM)
--- NOTE | 2018-01-05 10:40 | DI ---
EXAM: XR Chest, 2 Views CLINICAL HISTORY: Weakness; falls TECHNIQUE: Frontal and lateral views of the chest. COMPARISON: Chest x-rays dated 12/07/17 FINDINGS: Lungs: Mild pulmonary vascular congestion, however lungs appear better aerated compared to the prior chest x-ray. The lungs are otherwise clear without focal consolidation. Pleural space: Unremarkable. The costophrenic angle are sharp. No visible pneumothorax. Heart: Unremarkable. No cardiomegaly. Mediastinum: Unremarkable. Bones/joints: Unremarkable. IMPRESSION: Mild pulmonary vascular congestion, however lungs appear better aerated compared to the prior chest x-ray. The lungs are otherwise clear without focal consolidation.
[2018-01-05] MEDS ORDERED: Acetaminophen 1000mg Inj 1,000 MG/100 ML VIAL IV PRN (10:56)
[2018-01-05] MEDS ORDERED: ONDANSETRON 4 MG/2 ML VIAL IVP ONE (10:56)
[2018-01-05 12:14] LABS: BILIRUBIN,URINE NEGATIVE (NEG); CLARITY,URINE CLEAR (CLEAR); COLOR,URINE YELLOW (Y); GLUCOSE, URINE (UA) NEGATIVE (NEG); OCCULT BLOOD,URINE NEGATIVE (NEG); PH,URINE 5.5 (5.0-8.5); PROTEIN,URINE NEGATIVE (NEG); UROBILINOGEN,URINE 0.2 EU/dL (0.2)
[2018-01-05 12:18] LABS: URINE SAMPLE TYPE CLEAN CATCH URINE; URINE SPECIFIC GRAVITY - MAN 1.025
--- NOTE | 2018-01-05 12:23 | DI ---
EXAM: CT Head Without Intravenous Contrast CLINICAL HISTORY: Trauma TECHNIQUE: Axial computed tomography images of the head/brain without intravenous contrast. COMPARISON: No relevant prior studies available. FINDINGS: Brain: 3.3 x 3.0 cm CSF density structure in the midline posterior fossa is unchanged, likely an arachnoid cyst. Unchanged mild cerebral parenchymal volume loss, likely age-related. No evidence of acute intracranial hemorrhage. No significant white matter disease. No edema. No mass effect or midline shift. Ventricles: Unremarkable. No ventriculomegaly. Bones/joints: Unremarkable. No depressed skull fracture. Soft tissues: Left maxillary, periorbital, and forehead soft tissue swelling. Sinuses: Unremarkable as visualized. No acute sinusitis. Mastoid air cells: Unremarkable as visualized. No mastoid effusion. IMPRESSION: 1. Left maxillary, periorbital and forehead soft tissue swelling. 2. No acute intracranial findings. No evidence of acute intracranial hemorrhage, mass effect, or midline shift. 3. Unchanged 3.3 x 3.0 cm CSF density structure in the posterior fossa, likely an arachnoid cyst.
[2018-01-05 12:24] LABS: OPIATE SCREEN,URINE NEGATIVE (NEG)
[2018-01-05 12:25] LABS: AMPHETAMINE SCREEN POSITIVE (NEG); CANNABINOID SCREEN,URINE NEGATIVE (NEG); COCAINE SCREEN NEGATIVE (NEG); METHADONE URINE SCREEN NEGATIVE (NEG); METHAMPHETAMINES SCREEN,URINE POSITIVE (NEG)
--- NOTE | 2018-01-05 13:43 | PDOC ---
HPI - History of Present Illness Date of Service: 01/05/18 Time of Service: 13:30 Chief Complaint: Falls History of Present Illness: This is a 72 years old male with medical history significant for history of cirrhosis of the liver secondary to alcoholism, history of hepatic encephalopathy before, admission back in November of this year for pneumonia post discharge apparently he had hepatic encephalopathy and was admitted to [facility] was discharge and went home however he was found unresponsive was intubated and transferred to [facility] and treated as sepsis probably secondary to pneumonia was discharged to [facility] for rehabilitation and he said he's been home since the . He did say that they discontinued his pain medications and although they discontinued the furosemide his primary put him back on it, he said the [facility] physician did write a prescription for pain medication while his pain physician did not renew his pain medication. He's been taking the oxycodone may be once a day he ran out 3 days ago. He said there was a period of time he ran out on the lactulose but restarted taking it the last time he took it yesterday. Last night he fell like 4 times he said. First time he hit the back of his head he was able to get up and he went to the bathroom after that and fell forward and had hematoma to the left eyelid the periorbital area and had a skin tear on the left upper arm. After that he fell twice was able to get up and go to the bed and he called a friend who brought him to the ER. In the ER he was found to be very weak and had the multiple bruising in addition to hyponatremia and hypokalemia and he was admitted. He is denying chest pain or shortness of breath and he said he has some upset stomach as he was taking multiple aspirin for his pain. His pain mainly in his back. Past Medical History Medical History: 1. 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 2. Chronic back pain. 3. Tobacco abuse. 4. 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 5. Admission in early December 2017 to [facility] for sepsis and pneumonia after that he was discharged to [facility]. He was intubated briefly. Surgical History: 1. Hip replacement, left hip Pertinent Family History: States his father committed suicide. Mother of heart complications at age 87. Past Social History: Smokes, vapes, , has 2 children described as healthy. Retired and lives here in [place], [place]. His primary physician is Dr. Lagos in [place], [place]. He denied drugs Tobacco Use: Former Smoker In the Past 12 Months, Have Used or Abuse Any of the Following Substance: Marijuana Alcohol Use: None Medication / Allergies Home Medications: Home Medications 3 Medication Instructions Recorded Confirmed Type Oxycodone HCl/Acetaminophen 10 mg PO .(UP TO 5 TAB DAILY) PRN 05/26/13 01/05/18 History [Oxycodone-Acetaminophen 10-325] Spironolactone [Aldactone] 1 tab PO BID 05/26/13 01/05/18 History Desvenlafaxine Succinate [Pristiq] 50 mg PO DAILY 09/10/13 01/05/18 History Potassium Chloride [Klor-Con] 10 meq PO TID 09/10/13 01/05/18 History Cefdinir [Omnicef] 300 mg PO BID #6 cap 11/26/17 01/05/18 Rx Baclofen 20 mg PO QHS PRN 11/30/17 01/05/18 History Cyclobenzaprine HCl [Amrix] 15 mg PO DAILY 11/30/17 01/05/18 History Furosemide [Lasix] 40 mg PO BID 11/30/17 01/05/18 History Gabapentin 300 mg PO BID 11/30/17 01/05/18 History Metolazone 2.5 mg PO DAILY 11/30/17 01/05/18 History Lactulose Packet [Kristalose 20 gm PO DAILY 01/05/18 01/05/18 History Packet] Allergies/Adverse Reactions: Allergies 3 Allergy/AdvReac Type Severity Reaction Status Date / Time cyclobenzaprine HCl Allergy DYSPHORIA Verified 01/05/18 15:35 [From Flexeril] erythromycin base Allergy CHEST PAIN Verified 01/05/18 15:35 OR TIGHTNESS methocarbamol [From Robaxin] Allergy Anaphylaxis Verified 01/05/18 15:35 Review of Systems - Review of Systems All Systems: Reviewed & No Additional Complaints Except as Stated Exam - Vitals Vital Signs: Vital Signs Temperature 97.8 F Temperature Source Temporal Artery Scan Pulse Rate [Pulse Oximeter] 75 Pulse Rate 75 Respiratory Rate 18 Blood Pressure [Left Arm] 103/66 Blood Pressure 138/89 Pulse Ox 95 Oxygen Delivery Method Room Air Height 5 ft 11 in Weight 205 lb - General General Appearance: No Acute Distress, Cooperative - Head Additional Head Exam Details: Periorbital bruise noted with the swelling and hematoma of the eyelid, is irritable to open his eyes vision is okay. - Eye Eye Exam: POSITIVE: Normal Appearance - ENT ENT Exam: POSITIVE: Normal Exam - Neck Neck Exam: Normal Inspection - Respiratory Respiratory Exam: POSITIVE: Clear to Auscultation - Bilaterally - Cardiovascular Cardiovascular Exam: POSITIVE: RRR - GI/Abdominal GI/Abdominal Exam: POSITIVE: Normal Bowel Sounds, Non Tender, Non Distended, Soft, No Organomegaly - Rectal Rectal Exam: POSITIVE: Deferred - External Exam: POSITIVE: Deferred - Extremities Additional Extremities Exam Details: A skin tear noted on the back of the left arm. - Back Additional Back Exam Details: A bruise noted in the middle of the back. - Neurological Neurological Exam: POSITIVE: Alert, Oriented x 3, CN II-XII Intact, No Facial Droop, Speech Intact / Clear, Moves All Extremities Equally - Psychiatric Psychiatric Exam: POSITIVE: Normal Affect Results - Labs CBC and BMP: 01/05/18 09:40 01/05/18 09:40 - Imaging Status: Report Reviewed by Me (CT head 1. Left maxillary, periorbital and forehead soft tissue swelling. 2. No acute intracranial findings. No evidence of acute intracranial hemorrhage, mass effect, or midline shift. 3. Unchanged 3.3 x 3.0 cm CSF density structure in the posterior fossa, likely an arachnoid cyst.) Assessment and Plan - Patient Problems (1) Hyponatremia Current Visit: No Status: Acute Comment: He is on multiple diuretics including spironolactone, metolazone and Lasix. The notes from the discharge summary from [facility] says that they discontinued the Lasix and metolazone however he said his primary put him back on the Lasix. I think we'll hold off on the Lasix and metolazone for now continue only with the aldactone starting tomorrow. We'll give him some fluid and see whether that would help correct his hyponatremia. Will repeat his labs tomorrow. Code(s): E87.1 - Hypo-osmolality and hyponatremia (2) Hypokalemia Current Visit: No Status: Acute Comment: We'll give him potassium replacement. Will repeat his labs tomorrow. Code(s): E87.6 - Hypokalemia (3) Cirrhosis of liver Current Visit: No Status: Acute Comment: Continue his lactulose Code(s): K74.60 - Unspecified cirrhosis of liver Qualifiers: Hepatic cirrhosis type: alcoholic cirrhosis Ascites presence: without ascites Qualified Code(s): K70.30 - Alcoholic cirrhosis of liver without ascites (4) Lactic acidosis Current Visit: Yes Status: Acute Comment: His lactic acid is elevated, may be secondary to the dehydration from over diuresis will give him fluid will repeat his lactate later on I think will cover with antibiotics until we have culture results. Code(s): E87.2 - Acidosis (5) Weakness Current Visit: Yes Status: Acute Comment: Will ask PT and OT to work with him tomorrow. Code(s): R53.1 - Weakness (6) Amphetamine abuse Current Visit: Yes Status: Acute Comment: When I asked him about the positive meth in the urine he denied using drugs but he couldn't explain why his urine was positive for meth. Maybe that' s one of the reason for his multiple falls. Code(s): F15.10 - Other stimulant abuse, uncomplicated (7) Renal failure Current Visit: Yes Status: Acute Comment: His kidney seem to be better than the last time he was in the ER but at one point in November his kidney function was normal, so I don't know whether there is some component of chronic renal failure or not I think will see his response to fluid as there may be an acute component to the failure. Code(s): N19 - Unspecified kidney failure
[2018-01-05] MEDS ORDERED: LIDOCAINE W/ SODIUM BICARB 0.5 ML SYR SUBD PRN (13:56)
[2018-01-05] MEDS ORDERED: CALCIUM CARBONATE 500 MG (TUMS) CHEWABLE TABLET PO PRN (13:56)
[2018-01-05] MEDS ORDERED: DOCUSATE 100 MG CAPSULE PO PRN (13:56)
[2018-01-05] MEDS: Potassium Chloride Tab 10 MEQ TAB PO SCH ×2 (14:31→20:47)
[2018-01-05] MEDS ORDERED: ERTAPENEM 1 GM VIAL ONE (14:35)
[2018-01-05] MEDS: Ertapenem Inj 1 GM in Sodium Chloride 0.9% 100 ML IV SCH (14:36)
[2018-01-05] MEDS ORDERED: Sodium Chloride 0.9% 100 ML IV ONE (14:42)
[2018-01-05] MEDS: PANTOPRAZOLE IV 40 MG VIAL IVP SCH (15:28)
[2018-01-05] MEDS: DESVENLAFAXINE 50 MG PO SCH (15:28)
[2018-01-05] MEDS: ACETAMINOPHEN 325 MG TABLET PO PRN ×2 (17:07→23:11)
--- NOTE | 2018-01-05 22:02 | PDOC ---
General Adult HPI - General Chief Complaint: Fall Stated Complaint: FALL X2 LAST NIGHT/X1 THIS AM, LEFT EYE/ARM INJURY Date Seen by Provider: 01/05/18 Time Seen by Provider: 09:15 Source: POSITIVE: Patient, Other (Friend who brought the patient to the emergency room) Exam Limitations: POSITIVE: No limitations Nurse's Notes Reviewed & Considered: Yes - History of Present Illness Initial Comment: The patient is a 72-year-old male who is brought to the emergency room by a friend. The patient called the friend around 8 AM because the patient had been falling and injuring himself. He states he fell 2 times last night and one time this morning. He's been falling onto his left side and has sustained skin tears to his left upper arm and left forearm. He is also struck his head on an unknown object last night and has a large hematoma above and lateral to his left eye. He denies any loss of consciousness. No head chest or abdominal pain. Patient complains of feeling "weak" patient states he has a history of " a bad liver "due to alcohol abuse in the past and takes lactulose for this problem. Patient also has a history of narcotic dependent back pain. He states he was admitted to [facility] recently for "pneumonia" and following discharge from [facility] was transferred to [place] for rehabilitation, from which she was discharged on 20 December. No known fevers or chills. No hip pain. No nausea, vomiting, diarrhea, melena, hematochezia, hematemesis, dysuria or hematuria. He's had surgery to his lower back and has also had a left hip replacement. Have you received a tetanus shot in the past 10 years?: Unknown Body Location Affected: REPORTS: Head, Upper Extremity (L), Face Timing: REPORTS: Intermittent (Intermittent falls 4 and past 24 hours) Duration: <24 hours (Approximately 24 hours) Severity: Moderate Quality: REPORTS: "Pain" (Local pain at site of skin tears left arm and hematoma left side of face and forehead) Context: REPORTS: Fall Modifying Factors: improves with: Other (Weakness generalized. Possibly exacerbated by narcotic use) Similar Symptoms Previously: Yes Recent Care Received: REPORTS: Recently Seen, Treated by MD, Hospitalized (As above) Any Prior Injuries Related to Current Complaint?: No - Patient Home Medications Home Medications: Home Medications Oxycodone HCl/Acetaminophen [Oxycodone-Acetaminophen 10-325] 10 mg PO .(UP TO 5 TAB DAILY) PRN 05/26/13 Spironolactone [Aldactone] 1 tab PO BID 05/26/13 Desvenlafaxine Succinate [Pristiq] 50 mg PO DAILY 09/10/13 Potassium Chloride [Klor-Con] 10 meq PO TID 09/10/13 Cefdinir [Omnicef] 300 mg PO BID #6 cap 11/26/17 Baclofen 20 mg PO QHS PRN 11/30/17 Cyclobenzaprine HCl [Amrix] 15 mg PO DAILY 11/30/17 Furosemide [Lasix] 40 mg PO BID 11/30/17 Gabapentin 300 mg PO BID 11/30/17 Metolazone 2.5 mg PO DAILY 11/30/17 Lactulose Packet [Kristalose Packet] 20 gm PO DAILY 01/05/18 - Patient Allergies Allergies/Adverse Reactions: Allergies 3 Allergy/AdvReac Type Severity Reaction Status Date / Time cyclobenzaprine HCl Allergy DYSPHORIA Verified 01/05/18 15:35 [From Flexeril] erythromycin base Allergy CHEST PAIN Verified 01/05/18 15:35 OR TIGHTNESS methocarbamol [From Robaxin] Allergy Anaphylaxis Verified 01/05/18 15:35 Past Medical History - heen HEENT History: Cataracts Cardiovascular History: Previous MS, Arrhythmia Respiratory History: COPD, Pneumonia Gastrointestinal History: Diverticulitis Additional Gastrointestinal History: CIRRHOSIS Genitourinary History: Denies History Endocrine History: Denies History Musculoskeletal History: Back Pain Neurological History: Denies History Blood Disorders: Denies History Additional Blood Disorders History: CALL RECEIVED FROM PATIENTS PCP DR SAND[place]. PT INR HIGH. TO BE TREATED WITH VITAMIN K. DR TITUS OFFICE CALLED AND THEY WERE MADE AWARE OF SITUATION BY DR LOPEZ OFFICE ALSO. DR SALCEDO IN AGREEMENT TO DO PT/INR ON SATURDAY AND IF RESULTS BACK TO NORMAL WILL DO SURGERY BUT IF NOT, SX TO BE CANCELLED. MR CA CALLED TO INFORM HIM OF THIS, AND HE SAID THAT DUE TO INSURANCE AND COST, HE HADNT GOTTEN MEDS YET, AND THAT HIS CASE WAS GOING TO BE APPEALED. I GAVE HIM THE PHONE # TO [facility] AND ASKED HIM TO CALL TOMORROW TO LET THEM KNOW IF HE WAS GOING TO START MEDS OR NOT. OPS WILL THEN CALL DR BLEVINS OFFICE IF HE ISNT GOING TO BE ABLE TO TAKE MED, AT WHICH TIME HIS SURGERY WOULD BE CANCELLED Psychiatric History: Denies History History of Sexually Transmitted Diseases: No Cancer History: Denies History In Past Year Been Physically Harmed or Verbally Threatened: No History of MDRO: No History of Other Communicable Diseases: No Tobacco Use: Former Smoker Alcohol Use: Occasionally Type of alcohol normally used: Beer, Hard Liquor In the Past 12 Months, Have Used or Abuse Any Substance: Marijuana Previous Surgical History: Yes Type / Date of Surgery: BACK SURGERY/ COLONOSCOPY, LEFT HIP Anesthesia Reactions: No Malignant Hyperthermia: No Significant Family History: No pertinent family hx Past Medical History Reviewed: Reviewed - No Changes ROS - Limitations ROS Limitations: No Limitations Constitution: REPORTS: Weakness, Recent Illness (As above) Cardiovascular: REPORTS: Denies Cardiac Symptoms Respiratory: REPORTS: Denies Resp Symptoms Neurological: REPORTS: Denies Neuro Symptoms Gastrointestinal: REPORTS: Denies GI Symptoms Endocrine: REPORTS: Denies Symptoms Musculoskeletal: REPORTS: Muscle Aches (Left upper extremity as above) Genitourinary: REPORTS: Denies Symptoms Eyes: REPORTS: Denies Symptoms ENT: REPORTS: Denies Symptoms Skin: REPORTS: Other (Skin tears lateral aspect of left upper arm and forearm; contusion hematoma above the left eye and lateral to left eye) Lympathic: REPORTS: Denies Lympathic Symptoms Immunologic: POSITIVE: Denies Symptoms Psychiatric: POSITIVE: Denies Psych Symptoms General Adult Exam - General Appearance General Appearance: POSITIVE: Alert, Cooperative, No Acute Distress. NEGATIVE: No Evidence of Trauma (As above) - HEENT HEENT: POSITIVE: Eyes Inspection Nml, Ears Inspection Nml, Nose Inspection Nml, Oral/Dental Inspect. Nml, Pharynx Inspect. Nml, PERRL, EOMI. NEGATIVE: Head Inspection Nml (Contusion above left eye and lateral to the left eye) - Pupils Pupil Size: 3 mm: Bilateral (PERRLA) - Neck Neck: POSITIVE: Normal Inspection, Thyroid Normal - Respiratory Respiratory: POSITIVE: No Respiratory Distress, Breath Sounds Normal, Chest Non- Tender - Cardiovascular Cardiovascular: POSITIVE: Regular Rate & Rhythm, No Murmur, No Gallop, PMI Normal Peripheral Pulses: Radial (R): 2+, Radial (L): 2+, Dorsalis-pedis (R): 2+, Dorsalis-pedis (L): 2+ - Abdomen Abdomen: Soft: (All Quadrants), Normal Bowel Sounds: (All Quadrants), Denies Tenderness: (All Quadrants), No Splenomegaly: (All Quadrants), No Hepatomegaly: (All Quadrants), No Guarding: (All Quadrants), No Rebound: (All Quadrants), No Palpable Pulse: (All Quadrants), No Palpabale Mass: (All Quadrants), No Distention: (All Quadrants), No Rigidity: (All Quadrants) - Back Back: POSITIVE: Normal Inspection. NEGATIVE: CVA Tenderness, Thoracic Tenderness - Skin Skin: POSITIVE: Other (Skin tears left arm) - Extremities Extremity: Non-Tender: (All Extremities), Normal ROM: (All Extremities), Normal Inspection: (All Extremities) Additional Extremities Details: Skin tears left arm and forearm see diagram - Neurological / Psychological Neurological: POSITIVE: Oriented X3, community outreach advocate Normal As Tested, Motor Normal, Sensation Normal, 5, 6 Reflexes: Patellar (L): 2+, Radial (R): 2+ Images - Complete Complete: 1 - Skin tears 2 - Skin tears 3 - Hematoma 4 - Hematoma Procedures - Additional Procedures Additional Procedures: Other (Margins of his skin tears were gently teased together and secured with Steri-Strips after gentle cleansing. Dressings were placed.) General Adult Progress - Results Reviewed by me Xrays/CTs/US Reviewed by me: Yes Discussed with Radiologist: Yes Radiology Findings: Chest x-ray read by radiologist as showing mild vascular congestion; otherwise normal. CT scan of head shows no intracranial findings. Lab Results Reviewed by Me: Yes Lab Results:: Laboratory Results 3 01/05/18 01/05/18 01/05/18 09:40 09:40 09:40 WBC RBC Hgb Hct MCV MCH MCHC RDW Std Deviation RDW Coeff of Radha Plt Count Immature Gran % (Auto) Neut % (Auto) Lymph % (Auto) Traill % (Auto) Eos % (Auto) Baso % (Auto) Immature Gran # (Auto) Neut # (Auto) Lymph # (Auto) Traill # (Auto) Eos # (Auto) Baso # (Auto) WBC Morphology Comment Plt Morphology Comment RBC Morph Comment PT 12.6 H INR 1.22 VBG pH VBG pCO2 VBG HCO3 VBG Base Excess Sodium Potassium Chloride Carbon Dioxide Anion Gap BUN Creatinine Estimated GFR BUN/Creatinine Ratio Glucose Calculated Osmolality Lactic Acid 5.4 H Calcium Total Bilirubin AST ALT Alkaline Phosphatase Ammonia Total Creatine Kinase 44 L Total Protein Albumin Globulin Albumin/Globulin Ratio Amylase Lipase Ur Collection Type Urine Color Urine Clarity Urine pH Ur Specific Carnation U Specif Grav (Refrac) Urine Protein Urine Glucose (UA) Urine Ketones Urine Occult Blood Urine Nitrate Urine Bilirubin Urine Urobilinogen Ur Leukocyte Esterase Ur Culture Indicated? Urine Opiates Screen Ur Buprenorphine Ur Oxycodone Screen Urine Methadone Screen Ur Propoxyphene Screen Barbiturate Screen U Tricyclic Antidepress Phencyclidine Screen Amphetamines Screen U Methamphetamines Scrn Benzodiazepines Screen Cocaine Screen U Marijuana (THC) Screen Serum Alcohol < 10 3 01/05/18 01/05/18 01/05/18 09:40 09:40 09:40 WBC 11.47 H RBC 5.41 Hgb 15.1 Hct 42.4 MCV 78.4 L MCH 27.9 MCHC 35.6 RDW Std Deviation 61.4 H RDW Coeff of Radha 22.0 H Plt Count 167 Immature Gran % (Auto) 0.3 Neut % (Auto) 79.7 Lymph % (Auto) 11.2 Traill % (Auto) 8.2 Eos % (Auto) 0.3 Baso % (Auto) 0.3 Immature Gran # (Auto) 0.04 Neut # (Auto) 9.13 Lymph # (Auto) 1.29 Traill # (Auto) 0.94 H Eos # (Auto) 0.04 Baso # (Auto) 0.03 WBC Morphology Comment Normal morphology Plt Morphology Comment Normal morphology RBC Morph Comment See comments PT INR VBG pH VBG pCO2 VBG HCO3 VBG Base Excess Sodium 127 L Potassium 3.1 L Chloride 79 L Carbon Dioxide 31 Anion Gap 17 BUN 36 H Creatinine 2.0 H Estimated GFR Taxi Driver BUN/Creatinine Ratio 18.00 Glucose 159 H Calculated Osmolality 274.0 Lactic Acid Calcium 9.7 Total Bilirubin 1.3 H AST 54 ALT 21 Alkaline Phosphatase 161 H Ammonia Total Creatine Kinase Total Protein 8.3 H Albumin 4.2 Globulin 4.1 Albumin/Globulin Ratio 1.00 L Amylase 104 Lipase Ur Collection Type Urine Color Urine Clarity Urine pH Ur Specific Carnation U Specif Grav (Refrac) Urine Protein Urine Glucose (UA) Urine Ketones Urine Occult Blood Urine Nitrate Urine Bilirubin Urine Urobilinogen Ur Leukocyte Esterase Ur Culture Indicated? Urine Opiates Screen Ur Buprenorphine Ur Oxycodone Screen Urine Methadone Screen Ur Propoxyphene Screen Barbiturate Screen U Tricyclic Antidepress Phencyclidine Screen Amphetamines Screen U Methamphetamines Scrn Benzodiazepines Screen Cocaine Screen U Marijuana (THC) Screen Serum Alcohol 3 01/05/18 01/05/18 01/05/18 09:40 09:40 09:58 WBC RBC Hgb Hct MCV MCH MCHC RDW Std Deviation RDW Coeff of Radha Plt Count Immature Gran % (Auto) Neut % (Auto) Lymph % (Auto) Traill % (Auto) Eos % (Auto) Baso % (Auto) Immature Gran # (Auto) Neut # (Auto) Lymph # (Auto) Traill # (Auto) Eos # (Auto) Baso # (Auto) WBC Morphology Comment Plt Morphology Comment RBC Morph Comment PT INR VBG pH 7.54 H VBG pCO2 40 L VBG HCO3 24 VBG Base Excess 12 H Sodium Potassium Chloride Carbon Dioxide Anion Gap BUN Creatinine Estimated GFR BUN/Creatinine Ratio Glucose Calculated Osmolality Lactic Acid Calcium Total Bilirubin AST ALT Alkaline Phosphatase Ammonia < 9 L Total Creatine Kinase Total Protein Albumin Globulin Albumin/Globulin Ratio Amylase Lipase 92 Ur Collection Type Urine Color Urine Clarity Urine pH Ur Specific Carnation U Specif Grav (Refrac) Urine Protein Urine Glucose (UA) Urine Ketones Urine Occult Blood Urine Nitrate Urine Bilirubin Urine Urobilinogen Ur Leukocyte Esterase Ur Culture Indicated? Urine Opiates Screen Ur Buprenorphine Ur Oxycodone Screen Urine Methadone Screen Ur Propoxyphene Screen Barbiturate Screen U Tricyclic Antidepress Phencyclidine Screen Amphetamines Screen U Methamphetamines Scrn Benzodiazepines Screen Cocaine Screen U Marijuana (THC) Screen Serum Alcohol 3 01/05/18 12:10 WBC RBC Hgb Hct MCV MCH MCHC RDW Std Deviation RDW Coeff of Radha Plt Count Immature Gran % (Auto) Neut % (Auto) Lymph % (Auto) Traill % (Auto) Eos % (Auto) Baso % (Auto) Immature Gran # (Auto) Neut # (Auto) Lymph # (Auto) Traill # (Auto) Eos # (Auto) Baso # (Auto) WBC Morphology Comment Plt Morphology Comment RBC Morph Comment PT INR VBG pH VBG pCO2 VBG HCO3 VBG Base Excess Sodium Potassium Chloride Carbon Dioxide Anion Gap BUN Creatinine Estimated GFR BUN/Creatinine Ratio Glucose Calculated Osmolality Lactic Acid Calcium Total Bilirubin AST ALT Alkaline Phosphatase Ammonia Total Creatine Kinase Total Protein Albumin Globulin Albumin/Globulin Ratio Amylase Lipase Ur Collection Type Clean catch urine Urine Color Yellow Urine Clarity Clear Urine pH 5.5 Ur Specific Carnation 1.015 U Specif Grav (Refrac) 1.025 Urine Protein Negative Urine Glucose (UA) Negative Urine Ketones Negative Urine Occult Blood Negative Urine Nitrate Negative Urine Bilirubin Negative Urine Urobilinogen 0.2 Ur Leukocyte Esterase Negative Ur Culture Indicated? Culture not set Urine Opiates Screen Negative Ur Buprenorphine Negative Ur Oxycodone Screen Positive H Urine Methadone Screen Negative Ur Propoxyphene Screen Negative Barbiturate Screen Negative U Tricyclic Antidepress Negative Phencyclidine Screen Negative Amphetamines Screen Positive H U Methamphetamines Scrn Positive H Benzodiazepines Screen Positive H Cocaine Screen Negative U Marijuana (THC) Screen Negative Serum Alcohol CBC and BMP: 01/05/18 09:40 01/05/18 09:40 EKG Interpreted/Reviewed By Me:: Yes (normal sinus rhythm; normal) EKG Interpretation:: POSITIVE: Normal Sinus Rhythm, Normal Rate, Normal Intervals, Normal Bradford, Normal QRS, Normal ST/T - Patient's Progress Pain Medication Addressed: POSITIVE: Not Applicable School/Work Release Addressed: POSITIVE: Not Applicable Re-Examine Time: 12:40 Re-Examine Comment: Results of radiologic and laboratory studies discussed with patient. Toxicology screen shows that the patient is positive for oxycodone, amphetamine, methamphetamine and benzodiazepines. Patient is hyponatremic and hypokalemic. Serum ammonia less than 9. Case discussed with Dr. Lentz, hospitalist and patient is admitted for further evaluation. Patient states that he thinks he may not be able to live alone for much longer due to his deteriorating physical condition. Status: POSITIVE: Unchanged, Re-Examined Antibiotics Given: No - Consult Consult (If Yes, Name of Consulting MD & Time Called): Yes (Dr. Lentz, hospitalist, [id number]) Consulting MD will see pt:: POSITIVE: [facility] Admit Counseled: POSITIVE: Patient, RE: Lab Results, RE: Radiology Results, RE: DX, RE : Need for F/U Patient Care Time - Estimated PCT Patient Care Time (In Minutes): 55 Vital Signs - VS Reviewed Vital Signs Reviewed: Yes Discharge Clinical Impression: Weakness, Electrolyte abnormality, Drug abuse Discharge Disposition: Admit to Inpatient Condition: Fair Date Decision to Admit to Inpatient: 01/05/18 Time Decision to Admit to Inpatient: 12:40
[2018-01-05] MEDS: ONDANSETRON 4 MG/2 ML VIAL IVP PRN (22:45)
[2018-01-06 06:41] LABS: BASOPHILS # (AUTO) 0.06 10*3/UL; BASOPHILS % (AUTO) 0.8 % (0-1); EOSINOPHILS # (AUTO) 0.42 10*3/UL; EOSINOPHILS % (AUTO) 5.6 % (0-8); Hematocrit [HCT] 34.1 % (42.0-52.0); Hemoglobin [HGB] 11.6 g/dL (14.0-18.0); LYMPHOCYTES # (AUTO) 2.02 10*3/uL; MEAN CORPUSCULAR HEMOGLOBIN 27.2 PG (27-31); MONOCYTES # (AUTO) 1.01 10*3/UL (0.3-0.8); MONOCYTES % (AUTO) 13.4 % (5-15); NEUTROPHILS # (AUTO) 3.98 10*3/UL; RED BLOOD COUNT 4.26 10^6/uL (4.70-6.10)
[2018-01-06 06:56] LABS: BLOOD UREA NITROGEN 29 mg/dL (7-22); BUN/CREATININE RATIO 18.12 (6-20)
[2018-01-06 07:21] LABS: PLATELET MORPHOLOGY COMMENT SEE COMMENTS (NORM); RBC MORPHOLOGY COMMENT NORMAL MORPHOLOGY (NORM); WBC MORPHOLOGY COMMENT NORMAL MORPHOLOGY (NORM)
[2018-01-06] MEDS ORDERED: LACTULOSE 20 GM PACKET PO SCH (09:00)
--- NOTE | 2018-01-06 09:03 | PDOC(PROG) ---
Date of Service: 01/06/18 Time of Service: 09:00 Interval History: Subjective Patient complaining from back pain, He said he didn't sleep well last night. Because of the pain. He is requesting pain medications. When I talked to him about the meth he still doesn't know how that ended up in his system. Though he did mention that somebody gave him oxycodone according to him and he took it last time was Saturday. He said he used to use drugs but not anymore. Objective : Data - Labs CBC and BMP: 01/06/18 06:15 01/06/18 06:15 Objective : Exam - General General Appearance: No Acute Distress, Cooperative - Head Head Exam: Normal Inspection - Eye Additional Eye Exam Details: Swelling with bruise to left periorbital area. He is barely able to open his eyelid his vision seems to be unaffected though after we forcibly open his eyelid. - ENT ENT Exam: Normal Exam - Neck Neck Exam: Normal Inspection - Respiratory Respiratory Exam: Clear to Auscultation - Bilaterally - Cardiovascular Cardiovascular Exam: RRR - GI/Abdominal GI/Abdominal Exam: Normal Bowel Sounds, Non Tender, Non Distended, Soft, No Organomegaly - Rectal Rectal Exam: Deferred - External Exam: Deferred - Extremities Additional Extremities Exam Details: He had a skin tear on the left upper arm dressing applied to it. - Back Additional Back Exam Details: Mid back bruise noted. - Neurological Neurological Exam: Alert, Oriented x 3, CN II-XII Intact, Speech Intact / Clear - Psychiatric Psychiatric Exam: Normal Affect - Integumentary Additional Integumentary Exam Details: Multiple skin bruises noted, on the forearm, the back and the ney-orbital left area Assessment and Plan - Patient Problems (1) Hyponatremia Current Visit: No Status: Acute Comment: Sodium is improving. I think we'll cut back on his fluid may be stop the fluid at one point today Code(s): E87.1 - Hypo-osmolality and hyponatremia (2) Hypokalemia Current Visit: No Status: Acute Comment: Potassium is lower will give him more potassium. Code(s): E87.6 - Hypokalemia (3) Cirrhosis of liver Current Visit: No Status: Acute Comment: Continue Aldactone but will continue to hold off on Lasix and metolazone for now Code(s): K74.60 - Unspecified cirrhosis of liver Qualifiers: Hepatic cirrhosis type: alcoholic cirrhosis Ascites presence: without ascites Qualified Code(s): K70.30 - Alcoholic cirrhosis of liver without ascites (4) Lactic acidosis Current Visit: Yes Status: Acute Comment: This seems to be improved. Because of this he doses we started him empirically on IV antibiotics I think we'll continue for now untile we have culture results Code(s): E87.2 - Acidosis (5) Weakness Current Visit: Yes Status: Acute Comment: will ask PT and OT to work with him Code(s): R53.1 - Weakness (6) Amphetamine abuse Current Visit: Yes Status: Acute Comment: He still denying usage. Code(s): F15.10 - Other stimulant abuse, uncomplicated (7) Renal failure Current Visit: Yes Status: Acute Comment: Probably there is a acute component secondary to dehydration as his kidney function is improving we'll cut back on the fluid and maybe stop it at one point today Code(s): N19 - Unspecified kidney failure
[2018-01-06] MEDS ORDERED: Sodium Chloride 0.9% 100 ML IV ONE (09:07)
[2018-01-06] MEDS: DESVENLAFAXINE 50 MG PO SCH (09:14)
[2018-01-06] MEDS: Spironolactone Tab 50 MG TAB PO SCH ×2 (09:14→16:59)
[2018-01-06] MEDS: LACTULOSE 20 GM PACKET PO SCH ×2 (09:14→20:18)
[2018-01-06] MEDS: Potassium Chloride Tab 10 MEQ TAB PO SCH ×2 (09:14→15:02)
[2018-01-06] MEDS: PANTOPRAZOLE IV 40 MG VIAL IVP SCH (09:14)
[2018-01-06] MEDS: oxyCODONE-ACETAMINOPHEN 5-325 TAB PO PRN ×3 (09:35→22:29)
--- NOTE | 2018-01-06 14:06 | DI ---
XR T-SPINE 3VW,01/06/2018 8:54 AM: Clinical History: Status post fall with bruising of the back. Previous Exam: None at this facility. Findings: 3 views of the lower thoracic spine are obtained, and demonstrate anatomic alignment without fracture s. Mild degenerative endplate changes are noted at multiple levels throughout the lower thoracic and upper lumbar spine. There is mild compression deformity of the vertebral bodies. There is no infiltrate nor effusion. Impression: Mild degenerative changes of the thoracic spine without fractures.
--- NOTE | 2018-01-06 14:10 | DI ---
XR L-SPINE 2-3 VW,01/06/2018 8:55 AM: Clinical History: Fall with pain and bruising of the back. Previous Exam: None at this facility. Findings: AP and lateral views of the lumbar spine are obtained, and demonstrate anatomic alignment without fra ctures. There is mild loss of intervertebral disc height at the L5/S1 level. There is degenerative hy pertrophy of the posterior articulating facets. A few peripheral vascular calcifications are noted. No pathologic calcifications are seen. Impression: Degenerative changes of the lumbar spine without fractures.
[2018-01-06] MEDS: Ertapenem Inj 1 GM in Sodium Chloride 0.9% 100 ML IV SCH (15:02)
--- NOTE | 2018-01-06 15:46 | OTI REPORT ---
Thank you for the referral of Jassolivia Ascencio. He was seen on 01/06/18 for an occupational therapy inpatient evaluation secondary to generalized weakness. SUBJECTIVE: The patient is a 72-year-old male who is being seen secondary to falling in his home. He reports that a couple of weeks ago he was at [facility] for pneumonia. He transferred to [facility], stayed there a week, and then was discharged home. He reports that he has been very weak and has had difficulty caring for himself. Prior to getting sick, the patient typically was independent with simple ADLs including dressing himself, showering , making simple meals, and getting around at [place]. He says a typical day consists of sitting in his chair and not doing too much. He reports that he always has a couple of projects he is working on. PAST MEDICAL HISTORY: Past medical history can be found in the patient's medical record. OBJECTIVE FINDINGS: General observations: The patient was coming out of the bathroom with nursing upon the therapist's arrival. He stated that he wanted to take a shower. Range of motion: The patient had upper extremity active range of motion that was within functional limits. Strength: Strength was 3+/5 for flexion, 3+/5 for abduction, 4/5 for elbow flexion/extension, and 4/5 for wrist flexion/extension. Activities of daily living: The therapist assessed the patient's ADL skills while completing the shower. He was able to stand for approximately 5 minutes while locking his IV and getting his cardiac pads off. He then ambulated approximately 20 feet to the shower room. While in the shower room, we encouraged the patient to complete as many activities as possible. By the time he had reached the shower room he was very fatigued. He was off balance and needed min assist to stay upright. Once in shower chair, the patient was able to shower his frontal area with cues and legs to approximately mid calf. He was dependent with washing his back and his feet. He was able to stand and wash peroneal area with several cues and min assist for balance while hanging onto grab bar. Once sitting back down in chair after washing hair and body, the patient needed max assist to dry off back and the lower part of his legs. We then encouraged the patient to dress self. He required min assist with upper extremities secondary to his left arm wounds. He was able to don underwear with min assist for balance. He was able to don shorts with min assist to get over right lower extremity and min assist for balance. He was dependent with donning sock on the left side but was able to don sock on the right side. The patient then ambulated back to his room x20 yards. While sitting edge of bed the patient was able to brush hair independently after set up. Oxygen: The patient's oxygen saturation did decrease to 87-88%. He was not on oxygen the entire time going to the shower and back. We did put his 1.5 liters of oxygen back on the patient. Endurance: Activity tolerance is fair. The patient does become short of breath and fatigued pretty easily. ASSESSMENT: It was reported that the patient did have drugs in his system. It may be beneficial to look into going to the long-term for a while to improve his overall abilities to function more independently at home and to decrease his dependency on the drugs. Problem List: Decreased balance Decreased independence with ADLs Decreased ability to perform functional transfers Short-Term Goals: To be met by discharge from inpatient: Patient will be able to dress self independently without loss of balance. Patient will increase upper extremity strength to 4+/5 throughout to improve his abilities for functional transfers and ADLs. Patient will be able to complete a toilet transfer and toilet hygiene independently. Patient will complete all shower tasks and shower transfers independently. Patient will learn three positive coping skills to prevent relapse. Long-Term Goals: To be met following discharge from inpatient: Patient will return home, demonstrating safety and independence with all ADLs and functional transfers. TREATMENT PLAN: Patient will be seen B.I.D during the week and one time per day over the weekend as an inpatient to address the above goals and objectives. INITIAL TREATMENT: Treatment today consisted of the initial evaluation followed by showering task. Following treatment the patient was left in bed with oxygen on and bed alarm set. MTDD
--- NOTE | 2018-01-06 16:23 | PTI REPORT ---
Thank you for the referral of Jass Ascencio. He was seen on 01/06/18 for an inpatient evaluation secondary to generalized weakness and falls. SUBJECTIVE: The patient is a 72-year-old male who was brought into the ER yesterday secondary to multiple falls. The patient reports that he had four falls at his home. On one of the falls, he fell backward and hit the back of his head. On another fall he fell forward and has a large contusion around his left eye. He also has multiple skin tears on his right arm, bruising across his back and knees, and some small cuts on his feet. The patient reports a history of poor balance and multiple falls. He states that he loses his balance easily. He denies any dizziness but reports he will get up and take a few steps and then he will end up falling over. He states that his legs give out on him at times. 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 The patient reports that he lives by himself here in [place]. He states that he has four stairs to get into his house and he also has stairs to his basement. He states he does not go down there often, but his laundry is located in the basement and he states there is approximately 10 stairs to get down to the basement. The patient has a chronic history of low back pain and states that he has a pain level of 3/10 on the verbal analog scale (0=no pain, 10=worst pain) at this time as he did just receive a pain medication. The patient states that he is on three liters of oxygen at night and also has been hospitalized recently at the end of November 2017 for pneumonia and again in early December he was hospitalized at [facility] and did spend some time at [facility] for rehab. He was back home on December 20, 2017. The patient does have a history of alcoholism and cirrhosis of his liver. PAST MEDICAL HISTORY: Past medical history can be found in the patient's medical record. OBJECTIVE FINDINGS: General observations: The patient was in bed upon PT arrival. He was alert and he was oriented to the setting of which he was in. Pain: The patient reported his primary area of pain was his low back with a pain level of 3/10. Bed mobility: The patient was able to transfer from a supine to seated edge of bed position with stand by assist x1 for safety but did require additional time to complete the transfer. The patient demonstrated fair initial seated edge of bed balance. He was able to transfer back into supine with stand by assist x1 and required additional time to perform the transfer. Strength: Manual muscle testing was performed in a seated position. The patient demonstrated 4/5 bilateral lower extremity strength. The patient was able to follow verbal cues for strength testing. Vision: The patient reported that his vision was off secondary to not being able to open up his left eye and states that his right vision is poor and very blurry. Transfers: The patient was willing to try standing up with use of a walker. The patient performed a sit to stand transfer with contact guard assist x1 for safety. The patient demonstrated poor initial standing balance and a widened base of support with hand hold assist x2 on the walker. The patient was able to stand for approximately two minutes before requiring a seated rest break due to his legs feeling weak. The patient was able to perform a stand to sit transfer with contact guard assist x1 for safety. While standing the patient did complain of pain at the right heel where he has a large cut. Oxygen: After performing activity, we did test the patient's oxygen and his saturation was approximately 86-88% on room air. He is to be on one liter of oxygen but he is not wearing it consistently. ASSESSMENT: The patient has fair rehab potential secondary to his past medical history and history of multiple falls along with his lifestyle habits. Problem List: Multiple falls Generalized weakness Decreased endurance Short-Term Goals: To be met by discharge from inpatient: Patient will be able to transfer from bed to stand safely and independently. Patient will be able to ambulate at least 150 feet with least restrictive assistive device safely and independently. Patient will be able to ambulate up and down at least one flight of stairs safely and independently with least restrictive assistive device. Long-Term Goals: To be met following discharge from inpatient: Patient may attend outpatient physical therapy if deemed necessary upon time of discharge. TREATMENT PLAN: Patient will be seen B.I.D during the week and one time per day over the weekend as an inpatient to address the above goals and objectives. INITIAL TREATMENT: Treatment today consisted of the initial evaluation. Following treatment the patient was placed back in bed with bed alarm was set and call light within reach. [facility]
--- NOTE | 2018-01-06 16:45 | PT.PROG ---
Progress Note Progress Note: S. Patient stated that he is really tired this afternoon, he reports that he would perform exercise in his room this afternoon. O. Patient performed seated exercises in the form of; long arc quads, marches, heel toe raises, pillow squeezes, clam shells, resisted knee flexion all x 15 bilaterally, sit to stands x 7. Patient was left at the edge of bed with alarm and call light. A. Patient tolerated exercise well, he was struggling with pain from the bottom of his foot and did not feel up to walking or standing much. Patient would continue to benefit from skilled therapy to increase strength and endurance at this time. P. Continue POC.
[2018-01-06] MEDS: ONDANSETRON 4 MG/2 ML VIAL IVP PRN (17:49)
[2018-01-06] MEDS ORDERED: Sodium Chloride 0.9% 1,000 ML PRIMARY IV SCH (19:45)
[2018-01-07] MEDS: oxyCODONE-ACETAMINOPHEN 5-325 TAB PO PRN ×4 (04:50→22:33)
[2018-01-07 06:39] LABS: Hematocrit [HCT] 35.8 % (42.0-52.0); Hemoglobin [HGB] 11.8 g/dL (14.0-18.0); MEAN CORPUSCULAR HEMOGLOBIN 27.1 PG (27-31); MEAN CORPUSCULAR VOLUME 82.1 FL (80-90); RED BLOOD COUNT 4.36 10^6/uL (4.70-6.10)
[2018-01-07] MEDS: PANTOPRAZOLE 40 MG TABLET PO SCH (06:50)
[2018-01-07 07:25] LABS: BLOOD UREA NITROGEN 18 mg/dL (7-22)
--- NOTE | 2018-01-07 08:10 | PDOC(PROG) ---
Date of Service: 01/07/18 Time of Service: 08:00 Interval History: Subjective he was laying in bed, he said the he had a good night last night. His pain seemed to be controlled. He Said he ate yesterday. He is still weak. No other symptoms. No chest pain, no shortness of breath. Objective : Data - Labs CBC and BMP: 01/07/18 04:30 01/07/18 04:30 Objective : Exam - General General Appearance: No Acute Distress, Cooperative - Eye Additional Eye Exam Details: Left black eye - ENT ENT Exam: Normal Exam - Neck Neck Exam: Normal Inspection - Respiratory Respiratory Exam: Clear to Auscultation - Bilaterally - Cardiovascular Cardiovascular Exam: RRR - GI/Abdominal GI/Abdominal Exam: Normal Bowel Sounds, Non Tender, Non Distended, Soft, No Organomegaly - Rectal Rectal Exam: Deferred - External Exam: Deferred Exam: Deferred - Extremities Additional Extremities Exam Details: Dressing applied to the skin tear on the left upper arm - Neurological Neurological Exam: Alert, Oriented x 3, CN II-XII Intact, No Facial Droop, Speech Intact / Clear, Moves All Extremities Equally - Psychiatric Psychiatric Exam: Flat Affect Assessment and Plan - Patient Problems (1) Hyponatremia Current Visit: No Status: Acute Comment: This is improved I think will stop his IV fluid. Continue holding the metolazone and Lasix Code(s): E87.1 - Hypo-osmolality and hyponatremia (2) Hypokalemia Current Visit: No Status: Acute Comment: Better than yesterday. Though dropped from last night continue potassium replacement continue Aldactone. Code(s): E87.6 - Hypokalemia (3) Cirrhosis of liver Current Visit: No Status: Acute Comment: Continue Aldactone and continue holding the Lasix and metolazone. One of the blood cultures out of 4 grew gram-positive cocci I think it's a contaminant, I think though will continue antibiotics until we have final identification. Code(s): K74.60 - Unspecified cirrhosis of liver Qualifiers: Hepatic cirrhosis type: alcoholic cirrhosis Ascites presence: without ascites Qualified Code(s): K70.30 - Alcoholic cirrhosis of liver without ascites (4) Lactic acidosis Current Visit: Yes Status: Acute Comment: This is resolved Code(s): E87.2 - Acidosis (5) Weakness Current Visit: Yes Status: Acute Comment: Continue PT and OT Code(s): R53.1 - Weakness (6) Renal failure Current Visit: Yes Status: Acute Comment: Kidney function normalized. I think part of the problem is over diuresis. We'll DC his IV fluids well hold off on Lasix and metolazone Code(s): N19 - Unspecified kidney failure
[2018-01-07 08:12] LABS: PLATELET MORPHOLOGY COMMENT NORMAL MORPHOLOGY (NORM); RBC MORPHOLOGY COMMENT NORMAL MORPHOLOGY (NORM); WBC MORPHOLOGY COMMENT NORMAL MORPHOLOGY (NORM)
[2018-01-07 08:15] LABS: BAND NEUTROPHILS % 0 % (0-10); BASOPHILS % (MANUAL) 0 % (0-1); EOSINOPHILS % (MANUAL) 0 % (0-8); METAMYELOCYTES % 0 %; MONOCYTES % (MANUAL) 3 % (0-12); MYELOCYTES % 0 %; NEUTROPHILS % (MANUAL) 88 % (50-80); PROMYELOCYTES % 0 %
[2018-01-07] MEDS: DESVENLAFAXINE 50 MG PO SCH (09:02)
[2018-01-07] MEDS: Spironolactone Tab 50 MG TAB PO SCH (09:02)
[2018-01-07] MEDS: LACTULOSE 20 GM PACKET PO SCH ×2 (09:03→20:17)
--- NOTE | 2018-01-07 10:45 | OT.PROG ---
Progress Note Progress Note: S: pt reported that he felt weak and tired. He also stated his chest was feeling weird with a little pain. He reported that he is retired from the [employer]. O: pt was seen in his room for therapy after PT finished. He sat on edge of bed for up to 10 min and completed UE exercises with RTB in bicep flex, shoulder ext,rows and Hor abd x15. Although being quite fatigued he sat up to drink so fluids and then completed bed mobility Ind. He was left on his side with bed alarm on and call light within reach. A: pt displayed decreased activity tolerance today and could not tolerate much ambulation with PT. He just seemed extremely weak to complete much therapy today. He may continue to benefit from therapy to increase his activity tolerance and return strength to baseline. P: continue per POC.
--- NOTE | 2018-01-07 11:21 | EKG ---
[address] [address] Measurements Intervals [place] Rate: 64 P: 50 TN: 190 QRS: 40 QRSD: 124 T: 53 QT: 439 QTc: 448 Interpretive Statements SINUS RHYTHM WITH SINUS ARRHYTHMIA MODERATE INTRAVENTRICULAR CONDUCTION DELAY [110+ ms QRS DURATION] Compared to ECG 01/05/2018 09:56:32 Intraventricular conduction delay now present First degree AV block no longer present Prolonged QT interval no longer present Electronically Signed On 01-07-18 13:46:36 MDT by Leonel Castellanos MD [email or web address]
--- NOTE | 2018-01-07 11:37 | PT.PROG ---
Progress Note Progress Note: S. Patient stated that he is very tired this morning, however agreed to do exercises in his room. O. Patient ambulated 10 feet in his room and then performed seated long arc quads, marches, clam shells, resisted knee flexion, pillow squeezes all x 10 bilaterally with red thera band. Patient was left with OT for further therapy. A. Patient tolerated exercise fair, he complained of pain in his chest and difficulty breathing toward the end of the exercises. Patient continues to be very weak and would continue to benefit from skilled therapy to increase strength and endurance at this time. P. Continue POC.
[2018-01-07] MEDS: Potassium Chloride Tab 10 MEQ TAB PO SCH ×3 (11:41→20:16)
[2018-01-07] MEDS: Ertapenem Inj 1 GM in Sodium Chloride 0.9% 100 ML IV SCH (14:13)
--- NOTE | 2018-01-07 15:56 | OT.PROG ---
Progress Note Progress Note: S: pt reports that he is feeling much better than he did this morning. O: pt was seen in his room in the pm. He completed toilet transfer with SBA for safety. He did complete toileting Ind but needed assistance with clean up. He completed hygiene at sink with Vc's. He then returned to bed where he doffed LE garments with min A. He then donned new/clean LE garments with mod Ind as it took him longer to complete. He needed vc's for bed mobility but was left in supine position with call light within reach. A: pt participated much better this afternoon as he was more alert. He may continue to benefit from therapy to increase his overall activity tolerance and strength. Monitor his ADL's but believe once his strength returns he will be able to manage them much better. P: Continue per POC.
--- NOTE | 2018-01-07 16:27 | PT.PROG ---
Progress Note Progress Note: S. Patient stated that he would go for a walk. O. Patient ambulated 120 feet in the ch. Patient was left with OT for further therapy. A. Patient tolerated ambulation well, he required Contact Guard assist and one seated rest break. He continues to have weakness and balance deficits. He would continue to benefit from skilled therapy to increase strength, mobility and endurance. P. Continue POC.
[2018-01-08] MEDS: oxyCODONE-ACETAMINOPHEN 5-325 TAB PO PRN ×4 (04:54→23:44)
[2018-01-08 04:57] LABS: BASOPHILS # (AUTO) 0.04 10*3/UL; BASOPHILS % (AUTO) 0.4 % (0-1); EOSINOPHILS # (AUTO) 0.97 10*3/UL; EOSINOPHILS % (AUTO) 8.9 % (0-8); Hematocrit [HCT] 33.1 % (42.0-52.0); Hemoglobin [HGB] 10.9 g/dL (14.0-18.0); LYMPHOCYTES # (AUTO) 1.97 10*3/uL; MEAN CORPUSCULAR HEMOGLOBIN 27.2 PG (27-31); MEAN CORPUSCULAR HGB CONC 32.9 g/dL (33-37); MEAN CORPUSCULAR VOLUME 82.5 FL (80-90); MEAN PLATELET VOLUME 11.9 FL (7.4-12.2); NEUTROPHILS # (AUTO) 6.71 10*3/UL; NEUTROPHILS % (AUTO) 61.5 % (50-80); RED BLOOD COUNT 4.01 10^6/uL (4.70-6.10)
[2018-01-08 05:11] LABS: BLOOD UREA NITROGEN 12 mg/dL (7-22); BUN/CREATININE RATIO 13.33 (6-20)
[2018-01-08 06:43] LABS: PLATELET MORPHOLOGY COMMENT NORMAL MORPHOLOGY (NORM); RBC MORPHOLOGY COMMENT NORMAL MORPHOLOGY (NORM); WBC MORPHOLOGY COMMENT NORMAL MORPHOLOGY (NORM)
[2018-01-08] MEDS: PANTOPRAZOLE 40 MG TABLET PO SCH (07:44)
[2018-01-08] MEDS: Potassium Chloride Tab 10 MEQ TAB PO SCH ×2 (08:26→15:07)
[2018-01-08] MEDS: DESVENLAFAXINE 50 MG PO SCH (08:27)
[2018-01-08] MEDS: LACTULOSE 20 GM PACKET PO SCH ×2 (08:59→21:17)
[2018-01-08] MEDS ORDERED: Spironolactone Tab 50 MG TAB PO SCH ×3 (09:00)
--- NOTE | 2018-01-08 09:26 | PDOC(PROG) ---
Date of Service: 01/08/18 Time of Service: 09:00 Interval History: Subjective Patient feels better, denying new symptoms. Still weak though. No chest pain, no shortness of breath. He had an episode of chest pain after I saw him in the morning yesterday did not sound anginal we did check his troponin and was negative. EKG did not show significant change. No chest pain today. Objective : Data - Labs CBC and BMP: 01/08/18 04:35 01/08/18 04:35 Objective : Exam - General General Appearance: No Acute Distress, Cooperative - Head Additional Head Exam Details: Black left eye - Eye Additional Eye Exam Details: Black left eye, vision is okay. He is able to open his eyelid much better than before as the swelling subsided. - ENT ENT Exam: Normal Exam - Neck Neck Exam: Normal Inspection - Respiratory Respiratory Exam: Clear to Auscultation - Bilaterally - Cardiovascular Cardiovascular Exam: RRR - GI/Abdominal GI/Abdominal Exam: Normal Bowel Sounds, Non Tender, Non Distended, Soft, No Organomegaly - Rectal Rectal Exam: Deferred - External Exam: Deferred - Extremities Additional Extremities Exam Details: Dressing applied to the left upper arm skin tear - Back Additional Back Exam Details: Bruise on the back noted which was present on admission - Neurological Neurological Exam: Alert, Oriented x 3, CN II-XII Intact, No Facial Droop, Speech Intact / Clear, Moves All Extremities Equally - Psychiatric Psychiatric Exam: Normal Affect - Integumentary Additional Integumentary Exam Details: Multiple bruises noted in different parts of his body Assessment and Plan - Patient Problems (1) Hyponatremia Current Visit: No Status: Acute Comment: Seem to be improved. We've held the Lasix and metolazone continue holding those. Code(s): E87.1 - Hypo-osmolality and hyponatremia (2) Hypokalemia Current Visit: No Status: Acute Comment: Potassium still low, will give him more potassium replacement. He did have some diarrhea maybe that's contributing to it. We did order C. difficile. Code(s): E87.6 - Hypokalemia (3) Cirrhosis of liver Current Visit: No Status: Acute Comment: Difficult issue with him is to try to figure out what is the right dosage combination of diuretics for him. He's been on metolazone, Lasix and Aldactone. He doesn't have edema now. But he said he had a history of edema and he had history of ascites based on description and needed a paracentesis at one point in time. I think for now we'll continue holding the Lasix and metolazone. I think part of the problem that he had was excessive diuresis. I' ll try to use only aldactone now. His blood pressure is borderline so will cut back on the aldactone to 25 mg twice a day. I told him we'll watch his blood pressure and his weights and assess for edema depending on that will figure out what's the right combination for him without excessive overdiuresis. He is still weak so I told him probably will try to see whether we can put him in swing bed. Code(s): K74.60 - Unspecified cirrhosis of liver Qualifiers: Hepatic cirrhosis type: alcoholic cirrhosis Ascites presence: without ascites Qualified Code(s): K70.30 - Alcoholic cirrhosis of liver without ascites (4) Lactic acidosis Current Visit: Yes Status: Acute Comment: This is resolved. One bottle out of 4 showing gram-positive cocci he is on ertapenem I think once I have the identification of this and if it is a contaminant will D/C Antibiotic Code(s): E87.2 - Acidosis (5) Weakness Current Visit: Yes Status: Acute Comment: Continue PT and OT Code(s): R53.1 - Weakness (6) Renal failure Current Visit: Yes Status: Acute Comment: This is resolved, likely secondary to overdiuresis Code(s): N19 - Unspecified kidney failure
[2018-01-08] MEDS ORDERED: Spironolactone Tab 25 MG TAB PO SCH (09:45)
--- NOTE | 2018-01-08 09:53 | OT.PROG ---
Progress Note Progress Note: S: pt stated he didnt want to do anything else until this afternoon. O: pt completed red UE RTB exercise of chest pulls x10, 2 # biceps curls x10. A: pt tolerated session well but lacks motivation in morning sessions. P: continue POC
--- NOTE | 2018-01-08 10:42 | PT.PROG ---
Progress Note Progress Note: S: pt was sleepy and getting ready to take a nap upon entry. pt wanted to get up and move. pt reports having been given meds around 5 am and currently has 0/ 10 pain level. pt wants to be able to go home O: pt ambulated 150' w/ SWW CGA x 1. pt perform supine to sit and reverse ind. pt demo STS x 10 with CGA x 1. pt instructed in LAQ and 4 way ankle with red theraband. A: pt is able to ambulate with SWW CGA x1 but still demos moments of fatigue and needs frequent rest periods. pt demos minor balance issues which makes him a possible fall risk. discharge is not recommended at this time and pt would continue to benefit from skilled PT to progress to prior level of function to be able to return home safely P: Continue with ambulation w/ SWW progressing from CGA x1 to ind. Continue with LE therapeutic ex to increase LE strength, stability, and endurance. by ROSEMARIE Payan co-signed bykamran camp DPT
[2018-01-08] MEDS: Ertapenem Inj 1 GM in Sodium Chloride 0.9% 100 ML IV SCH (14:43)
--- NOTE | 2018-01-08 15:11 | OT.PROG ---
Progress Note Progress Note: S: Pt reports that he is feeling better than he was this morning. He said that he does not have a walker but uses a cane at home. He was ok with getting his own walker. O: Pt was seen in his room and completed bed mobility Ind from supine to EOB. He completed functional transfer with use of standard walker approx 175 ft with only one break. He returned to his room and completed ADL dressing only needing assistance with set up due to decrease activity tolerance. He completed hygiene at sink for up to 5 min INd. His dressing on arm was changed. He completed transfer back to w/c and was transferred downstairs. He completed 5 min on UE bike to increase activity tolerance before completing PT. He was returned to his room and left in bed per his request. A: pt participated much better today as he was feeling better. Strength appears to be returning. He ambulated well with a FWW. P: continue per POC.
--- NOTE | 2018-01-08 16:33 | PT.PROG ---
Progress Note Progress Note: S. Patient stated that he is feeling a little better this afternoon. O. Patient was wheeled to the therapy gym where he performed #2 box step ups x10 , sit to stands, shoulder press with 2# weights, all x 10, airex standing balance 3x1 minute. Patient ambulated 30 feet x 2. Patient was left with OT for further therapy. A. Patient tolerated therapy well this afternoon, He continues to have weakness and would continue to benefit from skilled therapy to increase strength, endurance and mobility. P. Continue POC.
[2018-01-09] MEDS: oxyCODONE-ACETAMINOPHEN 5-325 TAB PO PRN ×3 (05:59→17:55)
[2018-01-09 06:36] LABS: BLOOD UREA NITROGEN 8 mg/dL (7-22)
[2018-01-09] MEDS: PANTOPRAZOLE 40 MG TABLET PO SCH (06:57)
[2018-01-09] MEDS: Spironolactone Tab 25 MG TAB PO SCH ×2 (08:10→20:33)
[2018-01-09] MEDS: DESVENLAFAXINE 50 MG PO SCH (08:11)
[2018-01-09] MEDS: LACTULOSE 20 GM PACKET PO SCH ×2 (08:11→20:33)
[2018-01-09] MEDS ORDERED: Spironolactone Tab 25 MG TAB PO SCH (09:00)
[2018-01-09] MEDS ORDERED: Spironolactone Tab 50 MG TAB PO SCH (09:00)
--- NOTE | 2018-01-09 11:27 | OT.PROG ---
Progress Note Progress Note: S: pt reports that he is really tired this morning. O: pt was seen in the am and was transferred down to therapy by PT. He completed UE exercises with RTB in all planes x20 to increase strength. He completed x10 sit to stands with the 0# ball, x10 3# box to increase overall function, and attempted to stand on air ex to increase balance but was to dizzy to complete. He was returned to his room, ambulating entire way taking one break. He was left in restroom and instructed to pull call light when ready and nursing was notified of his whereabouts. A: pt still displays low activity tolerance and decrease balance. He may continue to benefit from therapy to increase his strength and activity tolerance to prevent future falls. P: continue per POC.
--- NOTE | 2018-01-09 14:32 | PDOC(PROG) ---
Interval History: Doing a little better still we still weak patient will like to go home with his son but he will stay the night to continue some more physical therapy. He is not interested in swing bed he said he will go home with this and live with his son. Patient is coherent not confused please see H&P from my colleague for full story Objective : Data - Labs CBC and BMP: 01/08/18 04:35 01/09/18 05:55 Objective : Exam - General General Appearance: Cooperative - Respiratory Respiratory Exam: Clear to Auscultation - Bilaterally, Breathing Non Labored, Normal To Percussion, Normal to Percussion and Palpation - Cardiovascular Cardiovascular Exam: RRR, No Murmur, No Clicks, No Gallops, No Rubs, PMI Non- Displaced - GI/Abdominal GI/Abdominal Exam: Normal Bowel Sounds, Non Tender, Non Distended, Soft, No Masses, No Hepatomegaly, No Splenomegaly, No Organomegaly - Extremities Extremities Exam: No Clubbing Present, No Edema Present Assessment and Plan - Patient Problems (1) Hyponatremia Current Visit: No Status: Acute Comment: Likely chronic from his cirrhosis Code(s): E87.1 - Hypo-osmolality and hyponatremia (2) Hypokalemia Current Visit: No Status: Acute Comment: Replace Code(s): E87.6 - Hypokalemia (3) Cirrhosis of liver Current Visit: No Status: Acute Comment: Most likely patient over diuresed and is now only on Aldactone most likely hypotensive from over diuresing and fell Code(s): K74.60 - Unspecified cirrhosis of liver Qualifiers: Hepatic cirrhosis type: alcoholic cirrhosis Ascites presence: without ascites Qualified Code(s): K70.30 - Alcoholic cirrhosis of liver without ascites (4) Lactic acidosis Current Visit: Yes Status: Acute Code(s): E87.2 - Acidosis (5) Weakness Current Visit: Yes Status: Acute Comment: Continue PTOT Code(s): R53.1 - Weakness (6) Renal failure Current Visit: Yes Status: Acute Comment: Improved prerenal Code(s): N19 - Unspecified kidney failure
[2018-01-09] MEDS: POTASSIUM CHLORIDE 20 MEQ TAB PO SCH ×2 (15:08→20:33)
--- NOTE | 2018-01-09 15:53 | OT.PROG ---
Progress Note Progress Note: S: pt reports that he wants to go live with his son for a little bit, and he is out of town right now but returning soon. O: pt was seen in his room in supine position and completed bed mobility ind. He completed donning of R sock Ind but needed MIn A with L. He transferred downstairs with use of walker. He completed 10 min on Nu step to increase activity tolerance. He then transferred to mat table completing shoulder press, bicep flex and shoulder flex x15 with BUE's to increase strength. He also completed dynamic standing balance activity standing on air ex while tapping balloon back and forth. A: pt displayed much better dynamic balance today as he had zero near falls while attempting activities. His Ue's did fatigued towards end of his exercises. He transfers well with FWW. He may continue to benefit from therapy to strengthen LE/UE and improve balance. He may benefit from living with family for some additional care upon D/c. P: continue per POC.
--- NOTE | 2018-01-09 16:17 | PT.PROG ---
Progress Note Progress Note: S. Patient stated that he is feeling a little better this morning. O. Patient ambulated 175 feet to the therapy gym where he used the nu-step x 10 minutes and performed #2 box step ups x10, sit to stands, long arc quads, marches, heel toe raises, ball squeezes, clam shells, resisted knee flexion all x 10 with 2# weight and red thera band. Airex standing balance 3x1 minute.Patient was left with OT for further therapy. A. Patient tolerated therapy well this morning, he was able to ambulate with min assist, he continues to have balance deficits and weakness and would continue to benefit from skilled therapy to increase strength, endurance and mobility. P. Continue POC.
--- NOTE | 2018-01-09 16:22 | PT.PROG ---
Progress Note Progress Note: S. patient stated that he is feeling alright this afternoon, he reports that he is very tired. O. Patient ambulated 175 feet to the therapy gym where he performed rhina step overs x 4 hurdles and an airex pad, long arc quads, heel toe raises, marches, all x 20 with 3#, sit to stands with 4# weight, patient ambulated 175 feet back to his room where he was left with alarm and call light. A. Patient tolerated therapy fair this afternoon, he continues to have balance deficits and requires min assist with balance activities and ambulation. Patient would continue to benefit from skilled therapy to increase strength and mobility. P. Continue POC.
[2018-01-10] MEDS: oxyCODONE-ACETAMINOPHEN 5-325 TAB PO PRN ×3 (00:10→12:28)
[2018-01-10 05:37] LABS: Hematocrit [HCT] 33.9 % (42.0-52.0); Hemoglobin [HGB] 11.1 g/dL (14.0-18.0); MEAN CORPUSCULAR HEMOGLOBIN 27.3 PG (27-31); MEAN CORPUSCULAR HGB CONC 32.7 g/dL (33-37); MEAN CORPUSCULAR VOLUME 83.5 FL (80-90); MEAN PLATELET VOLUME 11.4 FL (7.4-12.2); RED BLOOD COUNT 4.06 10^6/uL (4.70-6.10)
[2018-01-10 05:50] LABS: BLOOD UREA NITROGEN 8 mg/dL (7-22); SERUM ALBUMIN 2.8 g/dL (3.5-4.8)
[2018-01-10] MEDS: PANTOPRAZOLE 40 MG TABLET PO SCH (08:43)
[2018-01-10] MEDS: LACTULOSE 20 GM PACKET PO SCH (09:57)
[2018-01-10] MEDS: POTASSIUM CHLORIDE 20 MEQ TAB PO SCH (09:57)
[2018-01-10] MEDS: Spironolactone Tab 25 MG TAB PO SCH (09:58)
[2018-01-10 09:59] VITALS: O2SAT 90
[2018-01-10] MEDS: DESVENLAFAXINE 50 MG PO SCH (11:25)
--- NOTE | 2018-01-10 12:26 | DCSUMMARY ---
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 Renal failure Acute N19 Drug abuse Acute F19.10 Diagnostic Data, Laboratory Data, and Procedures of Signifigance: Laboratory Results 01/10/18 01/10/18 Range/Units 05:24 05:24 WBC 6.69 (4.8-10.8) 10^3/uL RBC 4.06 L (4.70-6.10) 10^6/uL Hgb 11.1 L (14.0-18.0) g/dL Hct 33.9 L (42.0-52.0) % MCV 83.5 (80-90) FL MCH 27.3 (27-31) PG MCHC 32.7 L (33-37) g/dL RDW Std Deviation 66.1 H (39-50) fL RDW Coeff of Radha 22.3 H (11.5-14.5) % Plt Count 115 L (140-350) 10*3/uL MPV 11.4 (7.4-12.2) FL Sodium 136 (135-145) meq/L Potassium 4.0 (3.8-5.2) meq/L Chloride 100 (98-112) meq/L Carbon Dioxide 33 (23-33) meq/L Anion Gap 3 L (5-20) BUN 8 (7-22) mg/dL Creatinine 0.8 (0.70-1.50) mg/dL BUN/Creatinine Ratio 10.00 (6-20) Glucose 94 (78-110) mg/dL Calculated Osmolality 279.0 (267-292) mOsm/kg Calcium 8.1 L (8.7-10.7) mg/dL Magnesium 1.8 (1.6-2.4) mg/dL Total Bilirubin 1.4 H (0.3-1.2) mg/dL AST 58 H (21-57) IU/L ALT 34 (21-72) IU/L Alkaline Phosphatase 118 (38-126) IU/L Total Protein 5.9 L (6.1-8.0) g/dL Albumin 2.8 L (3.5-4.8) g/dL Globulin 3.1 (2.50-4.10) g/dL Albumin/Globulin Ratio 0.90 L (1.3-2.0) mg/g History and Physical pertinent to Admission: This is a 72 years old male with medical history significant for history of cirrhosis of the liver secondary to alcoholism, history of hepatic encephalopathy before, admission back in November of this year for pneumonia post discharge apparently he had hepatic encephalopathy and was admitted to [facility] was discharge and went home however he was found unresponsive was intubated and transferred to [facility] and treated as sepsis probably secondary to pneumonia was discharged to [facility] for rehabilitation and he said he's been home since the . He did say that they discontinued his pain medications and although they discontinued the furosemide his primary put him back on it, he said the [place] physician did write a prescription for pain medication while his pain physician did not renew his pain medication. He's been taking the oxycodone may be once a day he ran out 3 days ago. He said there was a period of time he ran out on the lactulose but restarted taking it the last time he took it yesterday. Last night he fell like 4 times he said. First time he hit the back of his head he was able to get up and he went to the bathroom after that and fell forward and had hematoma to the left eyelid the periorbital area and had a skin tear on the left upper arm. After that he fell twice was able to get up and go to the bed and he called a friend who brought him to the ER. In the ER he was found to be very weak and had the multiple bruising in addition to hyponatremia and hypokalemia and he was admitted. He is denying chest pain or shortness of breath and he said he has some upset stomach as he was taking multiple aspirin for his pain. His pain mainly in his back. He did also have some acute kidney injury which resolved with hydration most likely prerenal. Stress with social service and nursing Past Medical History Medical History: 1. 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 2. Chronic back pain. 3. Tobacco abuse. 4. 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 5. Admission in early December 2017 to [facility] for sepsis and pneumonia after that he was discharged to [place]. He was intubated briefly. Surgical History: 1. Hip replacement, left hip Pertinent Family History: States his father committed suicide. Mother of heart complications at age 87. Past Social History: Smokes, vapes, , has 2 children described as healthy. Retired and lives here in [place], [place]. His primary physician is Dr. Lagos in [place], [place]. He denied drugs Tobacco Use: Former Smoker In the Past 12 Months, Have Used or Abuse Any of the Following Substance: Marijuana Alcohol Use: None Medication / Allergies Home Medications: Home Medications Medication Instructions Recorded Confirmed Type Oxycodone HCl/Acetaminophen 10 mg PO .(UP TO 5 TAB DAILY) PRN 05/26/13 History Oxycodone-Acetaminophen 10-325 Spironolactone Aldactone 1 tab PO BID 05/26/13 01/05/18 History Desvenlafaxine Succinate Pristiq 50 mg PO DAILY 09/10/13 01/05/18 History Potassium Chloride Klor-Con 10 meq PO TID 09/10/13 01/05/18 History Cefdinir Omnicef 300 mg PO BID #6 cap 11/26/17 01/05/18 Rx Baclofen 20 mg PO QHS PRN 11/30/17 01/05/18 History Cyclobenzaprine HCl Amrix 15 mg PO DAILY 11/30/17 01/05/18 History Furosemide Lasix 40 mg PO BID 11/30/17 01/05/18 History Gabapentin 300 mg PO BID 11/30/17 01/05/18 History Metolazone 2.5 mg PO DAILY 11/30/17 01/05/18 History Lactulose Packet Kristalose 20 gm PO DAILY 01/05/18 01/05/18 History Packet Course of Hospitalization: Gen.: No acute distress, alert, nontoxic Heart: Regular rate and rhythm, no murmurs, clicks, gallops, or rubs Lungs: Clear to auscultation bilaterally, breathing is nonlabored Abdomen/GI: Normal tones on auscultation, soft, nontender, nondistended Musculoskeletal/extremities: No clubbing, cyanosis, or edema Vitals reviewed and are listed below Assessment and Plan: 1. As per discharge assessments above 2. Disposition: Home with son 3. Condition on discharge, stable and improved. 4. Diet: regular diet 5. Activities: resume normal activities 6. Follow-Up: Dr. Lagos January 14 at 845 1. PCP 2. 7. Medications at the Time of Discharge: Home Medications 3 Medication Instructions Recorded Confirmed Type Spironolactone [Aldactone] 1 tab PO BID 05/26/13 01/05/18 History Desvenlafaxine Succinate [Pristiq] 50 mg PO DAILY 09/10/13 01/05/18 History Potassium Chloride [Klor-Con] 10 meq PO TID 09/10/13 01/05/18 History Gabapentin 300 mg PO BID 11/30/17 01/05/18 History Lactulose Packet [Kristalose 20 gm PO DAILY 01/05/18 01/05/18 History Packet] oxyCODONE/APAP 5/325 Tab 1 tab PO Q6H PRN tab 01/10/18 Rx [Percocet 5/325 Tab] 8. Time, care, counseling and coordination of care for this discharge is greater than 30 minutes. Exam - Vitals Vital Signs: Vital Signs Temperature 98.0 F Temperature Source Temporal Artery Scan Pulse Rate [Pulse Oximeter] 72 Pulse Rate 53 Respiratory Rate 16 Blood Pressure [Right Arm] 112/59 Blood Pressure [Right Radial 90/43 Artery] Blood Pressure [Left Calf] 133/57 Blood Pressure [Left Arm] 103/45 Blood Pressure 138/89 Pulse Ox 90 Oxygen Flow Rate 2 Oxygen Delivery Method Nasal Cannula Height 5 ft 11 in Weight 205 lb Patient Problems - Patient Problem List (1) Hyponatremia Current Visit: No Status: Acute Code(s): E87.1 - Hypo-osmolality and hyponatremia Category: Medical (2) Hypokalemia Current Visit: No Status: Acute Code(s): E87.6 - Hypokalemia Category: Medical (3) Cirrhosis of liver Current Visit: No Status: Acute Code(s): K74.60 - Unspecified cirrhosis of liver Qualifiers: Hepatic cirrhosis type: alcoholic cirrhosis Ascites presence: without ascites Qualified Code(s): K70.30 - Alcoholic cirrhosis of liver without ascites Category: Medical (4) Lactic acidosis Current Visit: Yes Status: Acute Code(s): E87.2 - Acidosis Category: Medical (5) Weakness Current Visit: Yes Status: Acute Code(s): R53.1 - Weakness Category: Medical (6) Renal failure Current Visit: Yes Status: Acute Code(s): N19 - Unspecified kidney failure Category: Medical
[2018-01-10 13:01] VITALS: BP 113/58; RESP 18; TEMP 98.1
--- NOTE | 2018-01-10 13:58 | PT.PROG ---
Progress Note Progress Note: S. Patient stated he would like to go home today. O. Patient ambulated 150 feet around the nurses station then performed sit to stands x 5. Patient was left with alarm and call light. A. Patient tolerated therapy well this morning, he continues to have some balance and weakness deficits however has met all goals at this time. P. Patient is cleared from therapy.
--- NOTE | 2018-01-10 14:57 | OT.PROG ---
Progress Note Progress Note: S: pt stated that he was still tired but wanted to get out of the hospital today. O: tx consisted of transfers from supine to EOB independently, performing ADL tasks of face washing, hair combing and UE/LE dressing independently. pt performed all ADL tasks independently. A: pt tolerated session well. P: continue POC
== END 2018-01-10 12:57 | disposition home or self-care (01) | DRG 683 ==
LOC: ER 09:08 → MED/SURG 12:49
PROVIDERS: ADMIT Internal Medicine; ATTEND Internal Medicine